=== PATIENT | male | born 1925 | race Caucasian/White ===

== ENCOUNTER 2016-06-16 07:46 | Inpatient (IN) | payer OTHER ==
[~2016-06-16] VITALS: Ht 170.2 cm; Wt 77.7 kg
[~2016-06-16 07:46] MED LIST: ACET-1256 PO; ASPEC81 PO; CARV3.122 PO; CHOL100010 PO; CMD25 PO; CMDUNK PO; FERR324T PO; FRS/40 PO; LISI40TA PO; MULT-506 PO; POTA10CA28 PO; TRAM-10 PO
[2016-06-16] MEDS ORDERED: SODIUM CHLORIDE 0.9% 1000ML 250 ML IV STA (08:11)
[2016-06-16] MEDS ORDERED: ONDANSETRON INJ 2 MG/ML 2 ML VIAL IV STA (08:11)
[2016-06-16] MEDS ORDERED: MoRPHine SULFATE 2 MG/ML CARP IV STA ×2 (08:11→09:13)
[2016-06-16] MEDS ORDERED: SODIUM CHLORIDE 0.9% 1000ML 1,000 ML IV STA (08:11)
--- NOTE | 2016-06-16 08:11 | EMERGENCY ROOM VISIT NOTE ---
History Report prepared by Genaro: Isabel Rollins Under the Supervision of: Dr. Ramez López M.D. First contact with patient: 08:01 Chief Complaint: ABDOMINAL PAIN Stated Complaint: ABD PAIN, SHARP PAIN Nursing Triage Summary: pt here with pain all over abd last night. pt states it kept him up all night. pt states had one emesis earlier last night. pt states his bowels are not right. pt states his bowels arent right, he used to go every morning, but now does not. History of Present Illness The patient is an 89 year old male who presents to the Emergency Room via son with complaints of worsening abdominal pain with onset one day ago. He rates his pain as a 9/10. The patient has had some chills, nausea, vomiting. He states that his bowel movements have been irregular and that is excrement has been hard. The patient states that he took two aspirin for the pain one day ago. The patient takes Coumadin for a pace maker that he has in place. He denies fevers, chest pain, urinary symptoms. Source of History: patient Onset: 1 day ago Position: abdomen Symptom Intensity: 9/10 Quality: other (abdominal pain) Timing: worsening Associated Symptoms: + chills, + nausea, + vomiting, No chest pain, No fevers, No urinary symptoms Note: He states that his bowel movements have been irregular and that is excrement has been hard. Review of Systems See HPI for pertinent positives & negatives. A total of 10 systems reviewed and were otherwise negative. Past Medical & Surgical Medical Problems: (1) Afib (2) Anticoagulation goal of INR 2 to 3 (3) HTN (hypertension) (4) Pacemaker (5) Right Knee DJD (6) Valvular disease Surgical Problems: (1) H/O hernia repair (2) H/O knee surgery (3) History of carpal tunnel surgery Old medical records were reviewed. Nurse's notes were reviewed and I agree with. Family History Hypertension Social History Smoking Status: Never Smoker Drug Use: none Housing Status: lives alone Occupation Status: retired Current/Historical Medications Scheduled Aspirin (Aspirin 81), 81 MG PO DAILY Carvedilol (Coreg), 12.5 MG PO BID Cholecalciferol (D 1000), 1,000 UNIT PO DAILY Furosemide (Lasix), 20 MG PO DAILY Lisinopril (Zestril), 40 MG PO DAILY Multivitamin (Multivitamin), 1 TAB PO DAILY Potassium Chloride (Micro-K Ext Rel), 10 MEQ PO DAILY Warfarin Sod (Jantoven), 2.5 MG PO UD Scheduled PRN Acetaminophen (Tylenol), 1,000 MG PO BID PRN for Pain Allergies Coded Allergies: No Known Allergies (Verified , 06/16/16) Physical Exam Vital Signs Date Time Temp Pulse Resp B/P Pulse Ox O2 Delivery O2 Flow Rate FiO2 06/16/16 11:22 60 18 146/76 95 Room Air 06/16/16 10:40 95 18 133/80 95 Room Air 06/16/16 07:55 37.1 69 16 181/92 99 Room Air Physical Exam General: Non ill appearing older male in no acute distress. HEENT: Normal cephalic atraumatic. Pupils are equal round and reactive to light. Extraocular movements are intact. Oropharynx is pink with moist mucous membranes. No swelling of the mouth lips or tongue. Neck: Supple with a midline trachea. No meningeal signs or stiffness, no JVD or bruits. No Stridor. Chest: Clear to auscultation bilaterally. No wheezes or rhonchi. No increased work of breathing. Heart: regular rate and rhythm. Abdomen: Soft, mildly diffusely tender mostly in the right mid to upper abdomen , no masses, nondistended without rebound guarding or rigidity. Extremities: No cyanosis clubbing or edema. No calf tenderness or assymetry Spine/Back. Non tender to palpation. No CVA tenderness Skin: Good turgor without rashes. Neurologic exam: Cranial nerves two through 12 are intact. Motor and sensation are intact and symmetrical throughout. Medical Decision & Procedures ER Provider Diagnostic Interpretation: CT results as stated below per my review and radiologist interpretation: CT OF THE ABDOMEN AND PELVIS WITH CONTRAST CLINICAL HISTORY: Abdominal pain. COMPARISON STUDY: None. TECHNIQUE: Following IV administration of 92 mL of Optiray-320, axial images of the abdomen and pelvis were obtained from the lung bases to the proximal femurs. Images were reviewed in the axial, sagittal, and coronal planes. IV contrast was administered without complication. CT DOSE: 476.56 mGy.cm FINDINGS: Visualized portions of the lower chest partially visualize pacer leads. There is moderate cardiomegaly. There is mild dilatation of visualized portions of the ascending aorta. Mild interlobular septal thickening is noted. The liver, spleen, adrenal glands, pancreas and kidneys are unremarkable. There is no peripancreatic infiltration. The gallbladder is slightly distended. There is moderate pericholecystic infiltration which extends into the marcial hepatis. No biliary ductal dilatation is identified. There may be small stones within the gallbladder. There is no evidence for a bowel obstruction. There is left colon diverticulosis without evidence for acute diverticulitis. No abdominal or pelvic lymphadenopathy is present. There is no hydronephrosis. No suspicious osseous lesions are present. IMPRESSION: 1. Findings suggestive of acute cholecystitis. 2. Moderate cardiomegaly and findings suggestive of mild interstitial pulmonary edema. Electronically signed by: Jhoan Rhoades M.D. 06/16/2016 9:50 AM Dictated Date/Time: 06/16/2016 9:42 AM Laboratory Results 06/16/16 08:25 Red Blood Count 4.01, Mean Corpuscular Volume 96.8, Mean Corpuscular Hemoglobin 33.4, Mean Corpuscular Hemoglobin Concent 34.5, Mean Platelet Volume 9.9, Neutrophils (%) (Auto) 86.5, Lymphocytes (%) (Auto) 7.3, Monocytes (%) (Auto) 5.6, Eosinophils (%) (Auto) 0.2, Basophils (%) (Auto) 0.1, Neutrophils # (Auto) 11.77, Lymphocytes # (Auto) 0.99, Monocytes # (Auto) 0.76, Eosinophils # (Auto) 0.03, Basophils # (Auto) 0.02 06/16/16 08:25 Test 06/16/16 08:00 06/16/16 08:25 06/16/16 08:28 06/16/16 08:30 Urine Color YELLOW Urine Appearance CLEAR (CLEAR) Urine pH 5.0 (4.5-7.5) Urine Specific [place] 1.024 (1.000-1.030) Urine Protein NEG (NEG) Urine Glucose (UA) NEG (NEG) Urine Ketones TRACE (NEG) Urine Occult Blood NEG (NEG) Urine Nitrite NEG (NEG) Urine Bilirubin NEG (NEG) Urine Urobilinogen NEG (NEG) Urine Leukocyte Esterase NEG (NEG) White Blood Count 13.61 K/uL (4.8-10.8) Red Blood Count 4.01 M/uL (4.7-6.1) Hemoglobin 13.4 g/dL (14.0-18.0) Hematocrit 38.8 % (42-52) Mean Corpuscular Volume 96.8 fL (80-100) Mean Corpuscular Hemoglobin 33.4 pg (25-34) Mean Corpuscular Hemoglobin Concent 34.5 g/dl (32-36) Platelet Count 167 K/uL (130-400) Mean Platelet Volume 9.9 fL (7.4-10.4) Neutrophils (%) (Auto) 86.5 % Lymphocytes (%) (Auto) 7.3 % Monocytes (%) (Auto) 5.6 % Eosinophils (%) (Auto) 0.2 % Basophils (%) (Auto) 0.1 % Neutrophils # (Auto) 11.77 K/uL (1.4-6.5) Lymphocytes # (Auto) 0.99 K/uL (1.2-3.4) Monocytes # (Auto) 0.76 K/uL (0.11-0.59) Eosinophils # (Auto) 0.03 K/uL (0-0.5) Basophils # (Auto) 0.02 K/uL (0-0.2) RDW Standard Deviation 49.6 fL (36.4-46.3) RDW Coefficient of Variation 14.0 % (11.5-14.5) Immature Granulocyte % (Auto) 0.3 % Immature Granulocyte # (Auto) 0.04 K/uL (0.00-0.02) Prothrombin Time 22.3 SECONDS (9.0-12.0) Prothromb Time International Ratio 2.0 (0.9-1.1) Activated Partial Thromboplast Time 34.7 SECONDS (21.0-31.0) Partial Thromboplastin Ratio 1.3 Est Creatinine Clear Calc Drug Dose 48.3 ml/min Estimated GFR () 79.9 Estimated GFR (Non- 68.9 BUN/Creatinine Ratio 18.7 (10-20) Calcium Level 9.2 mg/dl (8.5-10.1) Magnesium Level 2.2 mg/dl (1.8-2.4) Total Bilirubin 0.9 mg/dl (0.2-1) Direct Bilirubin 0.2 mg/dl (0-0.2) Aspartate Amino Transf (AST/SGOT) 24 U/L (15-37) Alanine Aminotransferase (ALT/SGPT) 48 U/L (12-78) Alkaline Phosphatase 124 U/L (45-117) Total Protein 7.5 gm/dl (6.4-8.2) Albumin 4.3 gm/dl (3.4-5.0) Lipase 156 U/L (73-393) Bedside Hemoglobin 13.9 g/dl (14.0-18.0) Bedside Hematocrit 41 % (42-52) Bedside Sodium 140 mEq/L (135-144) Bedside Potassium 4.1 mEq/L (3.3-5.0) Bedside Chloride 100 mEq/L (101-112) Bedside Total CO2 27 mEq/l (24-31) Anion Gap 19.0 mmol/L (16-25) Bedside Blood Urea Nitrogen 20 mg/dl (7-18) Bedside Creatinine 0.9 mg/dl (0.6-1.3) Bedside Glucose (other) 143 mg/dl (70-99) Bedside Ionized Calcium (Alesha) 1.15 mmol/l (1.12-1.32) Bedside Troponin I 0.020 ng/ml (0-0.045) Laboratory studies as stated above per my review. Medications Administered Medications (Trade) Dose Ordered Sig/Marek Route Start Time Stop Time Status Last Admin Dose Admin Sodium Chloride 250 ml @ 999 mls/hr Q16M STAT IV 06/16/16 08:11 06/16/16 08:26 DC 06/16/16 08:38 999 MLS/HR Sodium Chloride (Nss 1000ml) 1,000 ml @ 100 mls/hr Q10H STAT IV 06/16/16 08:11 06/16/16 13:03 DC 06/16/16 08:38 100 MLS/HR Ondansetron HCl (Zofran Inj) 4 mg NOW STAT IV 06/16/16 08:11 06/16/16 08:15 DC 06/16/16 08:36 4 MG Morphine Sulfate (MoRPHine SULFATE INJ) 2 mg NOW STAT IV 06/16/16 08:11 06/16/16 08:15 DC 06/16/16 08:37 2 MG Morphine Sulfate (MoRPHine SULFATE INJ) 2 mg NOW STAT IV 06/16/16 09:13 06/16/16 09:14 DC 06/16/16 09:16 2 MG Piperacillin Sod/ Tazobactam Sod (Zosyn Iv) 4.5 gm NOW STAT IV 06/16/16 10:38 06/16/16 10:41 DC 06/16/16 11:21 4.5 GM ECG Indication: abdominal pain Rate (beats per minute): 61 Rhythm: other (ventricular-paced rhythm) Findings: no acute ischemic change, no ectopy Comparison ECG Date: 01/11/2013 Change: no significant change ED Course 0804: Past medical records reviewed. The patient was evaluated in room B10, and a complete history and physical examination were performed. 0811: Morphine Sulfate 2 mg IV, Zofran 4 mg IV, Sodium Chloride 1000 ml @ 100 mls/hr IV, Sodium Chloride 250 ml @ 999 mls/hr IV 0855: I reevaluated the patient; he appears comfortable but states that he is having more pain. 0913: Morphine Sulfate 2 mg IV 1037: Upon reevaluation, the patient is doing well. I discussed the results and treatment plan with the patient and his son. They verbalized agreement of the treatment plan. The patient will be evaluated for further management. 1038: Zosyn 4.5 gm IV 1052: I discussed the case with Dr. Brunner (General Surgery); he advised admitting the patient to medicine and that he will see the patient. 1055: I discussed the case with Yuridia Gabriel PA-C ([facility]); she will further evaluate the patient. Medical Decision Differentials include, but are not limited to; constipation, bowel obstruction, infection, cardiac disease, UTI, gallbladder or appendix disease. This patient comes in as described above. He was placed in room B10. He is here for treatment and evaluation of abdominal pain. It is diffuse. He has had some constipation lately. IV access established and he was gently hydrated with IV normal saline. Additionally, he was given morphine 2 mg IV and Zofran 4 mg IV. Multiple blood testing was obtained. White count is elevated at 13. He has normal renal function. A CAT scan was obtained of the abdomen and pelvis. There are findings consistent with acute cholecystitis. His liver functions are not elevated. He was given Zosyn 4.5 g IV. He has no evidence of bowel obstruction. I did discuss case with Dr. Brunner who felt that the patient should be admitted the medical service and they will consult consult him. The patient is on Coumadin as an INR of 2.0. I did consult the [facility] hospitalist group who saw him in ER and will admit him for antibiotics and treatment of his acute cholecystitis Consults Time Called: 1048 Consulting Physician: Dr. Brunner (General Surgery) Returned Call: 1058 I discussed the case with Dr. Brunner (General Surgery); he advised admitting the patient to medicine and that he will see the patient. Additional Consults: Time Called: 105 Consulted Physician: Yuridia Gabriel PA-C ([facility]) Returned Call: [phone] Additional Comments: I discussed the case with Yuridia Gabriel PA-C ([facility]); she will further evaluate the patient. Impression Primary Impression: Acute cholecystitis Additional Impression: Right upper quadrant abdominal pain Scribe Attestation The scribe's documentation has been prepared under my direction and personally reviewed by me in its entirety. I confirm that the note above accurately reflects all work, treatment, procedures, and medical decision making performed by me. Departure Information Dispostion Being Evaluated By Hospitalist Referrals Niels Chambers D.OJessica (PCP) Patient Instructions My [facility] Problem Qualifiers
[2016-06-16 08:39] LABS: BASO % 0.1 %; BASO ABS # 0.02 K/uL (0-0.2); COMPLETE YES; EOS % 0.2 %; HEMATOCRIT 38.8 % (42-52); IG% 0.3 %; LYMPH % 7.3 %; LYMPH ABS # 0.99 K/uL (1.2-3.4); MEAN CELL VOLUME 96.8 fL (80-100); MEAN CORPUSCULAR HEMOGLOBIN 33.4 pg (25-34); MEAN CORPUSCULAR HGB CONC 34.5 g/dl (32-36); MEAN PLATELET VOLUME 9.9 fL (7.4-10.4); MONO % 5.6 %; NEUT % 86.5 %; PLATELET COUNT 167 K/uL (130-400); RED BLOOD COUNT 4.01 M/uL (4.7-6.1); WHITE BLOOD COUNT 13.61 K/uL (4.8-10.8)
[2016-06-16 08:42] LABS: ISTAT CREATININE 0.9 mg/dl (0.6-1.3); ISTAT HEMOGLOBIN 13.9 g/dl (14.0-18.0); ISTAT IONIZED CALCIUM 1.15 mmol/l (1.12-1.32)
[2016-06-16 08:52] LABS: URINE APPEARANCE CLEAR (CLEAR); URINE BILIRUBIN NEG (NEG); URINE COLOR YELLOW; URINE NITRITE NEG (NEG); URINE SPECIFIC GRAVITY 1.024 (1.000-1.030); UROBILINOGEN NEG (NEG)
[2016-06-16 08:53] LABS: MANUAL MICROSCOPIC REQUIRED? NO; REVIEW REQ? NO
[2016-06-16 08:55] LABS: PARTIAL THROMBOPLASTIN RATIO 1.3; PROTHROMBIN TIME (PATIENT) 22.3 SECONDS (9.0-12.0)
[2016-06-16 08:56] LABS: BUN/CREATININE RATIO 18.7 (10-20); CALCIUM 9.2 mg/dl (8.5-10.1); CREATININE 0.97 mg/dl (0.60-1.40); POTASSIUM 4.1 mmol/L (3.5-5.1)
[2016-06-16] MEDS ORDERED: OPTIRAY 320 IV PRN (09:00)
[2016-06-16] MEDS ORDERED: ASPI-435 PO (09:27)
[2016-06-16] MEDS ORDERED: CARV12.5 PO (09:27)
[2016-06-16] MEDS ORDERED: CHOL100041 PO (09:27)
[2016-06-16] MEDS ORDERED: FURO20TA PO (09:27)
[2016-06-16] MEDS ORDERED: WARF2.5T8 PO (09:27)
--- NOTE | 2016-06-16 09:52 | DIAGNOSTIC IMAGING REPORT ---
CT OF THE ABDOMEN AND PELVIS WITH CONTRAST CLINICAL HISTORY: Abdominal pain. COMPARISON STUDY: None. TECHNIQUE: Following IV administration of 92 mL of Optiray-320, axial images of the abdomen and pelvis were obtained from the lung bases to the proximal femurs. Images were reviewed in the axial, sagittal, and coronal planes. IV contrast was administered without complication. CT DOSE: 476.56 mGy.cm FINDINGS: Visualized portions of the lower chest partially visualize pacer leads. There is moderate cardiomegaly. There is mild dilatation of visualized portions of the ascending aorta. Mild interlobular septal thickening is noted. The liver, spleen, adrenal glands, pancreas and kidneys are unremarkable. There is no peripancreatic infiltration. The gallbladder is slightly distended. There is moderate pericholecystic infiltration which extends into the marcial hepatis. No biliary ductal dilatation is identified. There may be small stones within the gallbladder. There is no evidence for a bowel obstruction. There is left colon diverticulosis without evidence for acute diverticulitis. No abdominal or pelvic lymphadenopathy is present. There is no hydronephrosis. No suspicious osseous lesions are present. IMPRESSION: 1. Findings suggestive of acute cholecystitis. 2. Moderate cardiomegaly and findings suggestive of mild interstitial pulmonary edema. Electronically signed by: Jhoan Rhoades M.D. 06/16/2016 9:50 AM Dictated Date/Time: 06/16/2016 9:42 AM
[2016-06-16] MEDS ORDERED: PIPERACILLIN/TAZOBACTAM 4.5 GM/100ML D5W IV STA (10:38)
[2016-06-16] MEDS ORDERED: PIPERACILL/TAZOBAC CONSULT ACTIVE PRN (11:30)
--- NOTE | 2016-06-16 11:38 | DIAGNOSTIC IMAGING REPORT ---
CHEST ONE VIEW PORTABLE CLINICAL HISTORY: Preoperative evaluation. COMPARISON STUDY: Chest radiograph January 11, 2013. FINDINGS: A dual lead right pacemaker is noted. There is moderate cardiomegaly. No pneumothorax is present. There is no consolidation to suggest pneumonia. There is pulmonary vascular congestion without overt edema. IMPRESSION: 1. Moderate cardiomegaly. 2. Pulmonary vascular congestion without overt pulmonary edema. 3. No consolidation to suggest pneumonia. Electronically signed by: Jhoan Rhoades M.D. 06/16/2016 11:36 AM Dictated Date/Time: 06/16/2016 11:35 AM
[2016-06-16] MEDS ORDERED: SODIUM CHLORIDE 0.9% 1000ML 1,000 ML IV SCH ×2 (11:45→12:00)
[2016-06-16] MEDS ORDERED: MoRPHine SULFATE 2 MG/ML CARP IV PRN (12:00)
--- NOTE | 2016-06-16 12:06 | History and Physical ---
History & Physical Date & Time of Service: Jun 16, 2016 at 11:51 Chief Complaint: Abd Pain, Sharp Pain Primary Care Physician: Niels Chambers D.O. History of Present Illness Source: patient, family, clinic records, hospital records Patient seen and examined. 89 year old male with PMHx of Afib on Coumadin, Sick Sinus Syndrome s/p pacemaker, valvular disease, and HTN presents to the ED complaining of abdominal pain x 1 day. Patient reports last evening he developed diffuse sharp abdominal pain he rated as a 9/10. He reports it was constant and he had one episode of vomiting and one episode of loose stools. He denies fevers, chills, URI symptoms, chest pain, SOB, palpitations, dysuria, calf pain and edema. He denies new and unusual foods or fatty/fried foods. He states this has never happened before. He denies history of abdominal surgeries. In the ED VS were stable, WBC count was 13.6, INR was 2. CT a/p showed acute cholecystitis. He received IVFs, morphine and Zosyn. He is resting comfortably. Surgery was consulted and suggested medical admission for Coumadin reversal. He will be admitted for further workup and treatment. Past Medical/Surgical History Medical Problems: (1) Afib Status: Chronic (2) Anticoagulation goal of INR 2 to 3 Status: Chronic (3) HTN (hypertension) Status: Chronic (4) Pacemaker Status: Chronic (5) Right Knee DJD Status: Resolved (6) Valvular disease Status: Chronic Surgical Problems: (1) H/O hernia repair Status: Chronic (2) H/O knee surgery Status: Chronic (3) History of carpal tunnel surgery Status: Chronic Family History FH: cancer Hypertension Social History Smoking Status: Never Smoker Alcohol Use: none Drug Use: none Marital Status: Housing status: lives alone Occupational Status: retired Immunizations History of Influenza Vaccine: No Influenza Vaccine Date: Jan 18, 2010 History of Tetanus Vaccine?: Unknown History of Pneumococcal: No History of Hepatitis B Vaccine: Unknown Allergies Coded Allergies: No Known Allergies (Verified , 06/16/16) Home Medications Scheduled Aspirin (Aspirin 81), 81 MG PO DAILY Carvedilol (Coreg), 12.5 MG PO BID Cholecalciferol (D 1000), 1,000 UNIT PO DAILY Furosemide (Lasix), 20 MG PO DAILY Lisinopril (Zestril), 40 MG PO DAILY Multivitamin (Multivitamin), 1 TAB PO DAILY Potassium Chloride (Micro-K Ext Rel), 10 MEQ PO DAILY Warfarin Sod (Jantoven), 2.5 MG PO UD Scheduled PRN Acetaminophen (Tylenol), 1,000 MG PO BID PRN for Pain Review of Systems See above for pertinent positives & negatives. A total of 10 systems reviewed and were otherwise negative. Physical Exam Vital Signs Date Time Temp Pulse Resp B/P Pulse Ox O2 Delivery O2 Flow Rate FiO2 06/16/16 11:22 60 18 146/76 95 Room Air 06/16/16 10:40 95 18 133/80 95 Room Air 06/16/16 07:55 37.1 69 16 181/92 99 Room Air General Appearance: + pertinent finding (Pleasant WD/WN 89 year old male lying in bed in NAD with family at bedside ) Head: normocephalic, atraumatic Eyes: PERRL, EOMI, sclerae normal ENT: normal ENT inspection, pharynx normal Neck: supple, no JVD Respiratory/Chest: chest non-tender, lungs clear, normal breath sounds, no respiratory distress, no accessory muscle use Cardiovascular: regular rate, rhythm, no edema, no gallop, no JVD, no murmur, normal peripheral pulses Abdomen/GI: normal bowel sounds, soft, + tenderness (diffuse worse RUQ, no guarding or rigidity ), + pertinent finding (+calixto's sign ) Back: normal inspection, no muscle spasm Extremities/Musculoskelatal: no calf tenderness, normal capillary refill, no pedal edema Neurologic/Psych: no motor/sensory deficits, alert, oriented x 3 Skin: normal color, warm/dry, no rash Lymphatic: no adenopathy Diagnostics Laboratory Results Results Past 24 Hours Test 06/16/16 08:00 06/16/16 08:25 06/16/16 08:28 06/16/16 08:30 Range/Units Urine Color YELLOW Urine Appearance CLEAR CLEAR Urine pH 5.0 4.5-7.5 Urine Specific Gem 1.024 1.000-1.030 Urine Protein NEG NEG Urine Glucose (UA) NEG NEG Urine Ketones TRACE NEG Urine Occult Blood NEG NEG Urine Nitrite NEG NEG Urine Bilirubin NEG NEG Urine Urobilinogen NEG NEG Urine Leukocyte Esterase NEG NEG White Blood Count 13.61 4.8-10.8 K/uL Red Blood Count 4.01 4.7-6.1 M/uL Hemoglobin 13.4 14.0-18.0 g/dL Hematocrit 38.8 42-52 % Mean Corpuscular Volume 96.8 80-100 fL Mean Corpuscular Hemoglobin 33.4 25-34 pg Mean Corpuscular Hemoglobin Concent 34.5 32-36 g/dl Platelet Count 167 130-400 K/uL Mean Platelet Volume 9.9 7.4-10.4 fL Neutrophils (%) (Auto) 86.5 % Lymphocytes (%) (Auto) 7.3 % Monocytes (%) (Auto) 5.6 % Eosinophils (%) (Auto) 0.2 % Basophils (%) (Auto) 0.1 % Neutrophils # (Auto) 11.77 1.4-6.5 K/uL Lymphocytes # (Auto) 0.99 1.2-3.4 K/uL Monocytes # (Auto) 0.76 0.11-0.59 K/uL Eosinophils # (Auto) 0.03 0-0.5 K/uL Basophils # (Auto) 0.02 0-0.2 K/uL RDW Standard Deviation 49.6 36.4-46.3 fL RDW Coefficient of Variation 14.0 11.5-14.5 % Immature Granulocyte % (Auto) 0.3 % Immature Granulocyte # (Auto) 0.04 0.00-0.02 K/uL Prothrombin Time 22.3 9.0-12.0 SECONDS Prothromb Time International Ratio 2.0 0.9-1.1 Activated Partial Thromboplast Time 34.7 21.0-31.0 SECONDS Partial Thromboplastin Ratio 1.3 Sodium Level 139 136-145 mmol/L Potassium Level 4.1 3.5-5.1 mmol/L Chloride Level 102 98-107 mmol/L Carbon Dioxide Level 28 21-32 mmol/L Anion Gap 9.0 19.0 16-25 mmol/L Blood Urea Nitrogen 18 7-18 mg/dl Creatinine 0.97 0.60-1.40 mg/dl Est Creatinine Clear Calc Drug Dose 48.3 ml/min Estimated GFR () 79.9 Estimated GFR (Non- 68.9 BUN/Creatinine Ratio 18.7 10-20 Random Glucose 141 70-99 mg/dl Calcium Level 9.2 8.5-10.1 mg/dl Magnesium Level 2.2 1.8-2.4 mg/dl Total Bilirubin 0.9 0.2-1 mg/dl Direct Bilirubin 0.2 0-0.2 mg/dl Aspartate Amino Transf (AST/SGOT) 24 15-37 U/L Alanine Aminotransferase (ALT/SGPT) 48 12-78 U/L Alkaline Phosphatase 124 45-117 U/L Total Protein 7.5 6.4-8.2 gm/dl Albumin 4.3 3.4-5.0 gm/dl Lipase 156 73-393 U/L Bedside Hemoglobin 13.9 14.0-18.0 g/dl Bedside Hematocrit 41 42-52 % Bedside Sodium 140 135-144 mEq/L Bedside Potassium 4.1 3.3-5.0 mEq/L Bedside Chloride 100 101-112 mEq/L Bedside Total CO2 27 24-31 mEq/l Bedside Blood Urea Nitrogen 20 7-18 mg/dl Bedside Creatinine 0.9 0.6-1.3 mg/dl Bedside Glucose (other) 143 70-99 mg/dl Bedside Ionized Calcium (Alesha) 1.15 1.12-1.32 mmol/l Bedside Troponin I 0.020 0-0.045 ng/ml Microbiology Results 06/16/16 Urine Culture, Received Pending Diagnostic Radiology CXR Per radiologist read: IMPRESSION: 1. Moderate cardiomegaly. 2. Pulmonary vascular congestion without overt pulmonary edema. 3. No consolidation to suggest pneumonia. CT A/P Per radiologist read: IMPRESSION: 1. Findings suggestive of acute cholecystitis. 2. Moderate cardiomegaly and findings suggestive of mild interstitial pulmonary edema. EKG Ventricular paced 61 BPM, Qtc 491 Impression Assessment and Plan 89 year old male presents to the ED with abdominal pain, found to have acute cholecystitis. ACUTE CHOLECYSTITIS -Admit to med/surg -WBC count 13K, lfts stable, afebrile -Dr. Brunner (general surgery) aware input appreciated -empirically treat with Zosyn -Gentle IVF hydration -Morphine prn pain -keep npo until seen by surgery -reverse Coumadin with Vitamin K po -Preop workup - EKG paced rhythm, check CXR, Echo, interrogate pacemaker -continue BB perioperatively without interruption -hold Coumadin, aspirin -CBC, CMP, Mg in AM ATRIAL FIBRILLATION -ventricular paced -hold Coumadin for upcoming surgery -continue BB -follow INR H/O SICK SINUS SYNDROME -s/p pacemaker -per family pacemaker nearing end of battery life -interrogation ordered VALVULAR DISEASE -h/o mitral regurgitation and aortic insufficiency -update Echo -hold lasix for now -monitor volume status closely HTN -stable -continue BB -hold lisinopril for now DVT PROPHYLAXIS: SCDs RE: surgery CODE STATUS: FULL CODE per my discussion with the patient and his family DISPO:In my clinical judgment this beneficiary meets acute admission criteria, established by [facility], that includes being hospitalized through two midnights. Patient seen in collaboration with Dr. Roche Attending Addendum Pt was seen and examined. Agreed with Yuridia AGLLEGOS physical exam, assessment and plan. 89 year old male with PMHx of Afib on Coumadin, Sick Sinus Syndrome s/p pacemaker, valvular disease, and HTN presents to the ED complaining of abdominal pain. Pt said that the pain started last night associated with nausea , vomiting and diarrhea. he described it as sharp, constant and diffuse, grade 9/10. Denies any fever, palpitation, dizziness and SOB. General- No acute distress Head- atraumatic Eyes- PERRL, EOMI ENT- oropharynx clear Neck- supple, no JVD Lungs- clear to auscultation, no wheezing Heart- regular rhythm; no murmur Abdomen- normal bowel sounds, RUQ abdominal tenderness A/P RUQ abdominal tenderness CT abdomen showed findings suggestive of acute cholecystitis Dr. Brunner (general surgery) on board for possible surgery in am Continue Morphine prn pain INR 2 will give vit K ( INR needs to be btw 1-1.5 ), hold coumadin Need cardiac clearance as per surgery check echo and pacemaker interrogation Lab, imaging, EKG reviewed Please refer to Yuridia GALLEGOS's documentation for other problems Felipe Roche MD VTE Prophylaxis VTE Risk Assessment Done? Y/N: Yes Risk Level: Moderate
--- NOTE | 2016-06-16 12:36 | Pre-Operative Consultation ---
History General Date of Service: Jun 16, 2016. Stated Complaint: abdominal pain HPI HPI: The patient is a 89 year old male being seen for acute cholecystitis. He initialling complained of worsening abdominal pain since last night, . The patient has had some chills, nausea, vomiting. He denies fever or urinary symptoms. The patient takes Coumadin a.fib and has a pacemaker. Historian: patient Procedure Urgency: Acute Risk Assessment Daily beta teresa use?: Yes Beta Teresa Details Indication Beta Teresa use: hypertension Problem List Medical Problems: (1) Acute cholecystitis Status: Acute (2) Right upper quadrant abdominal pain Status: Acute Medical & Surgical History Past Medical History: atrial fibrillation, heart disease, hypertension, osteoarthritis Past Surgical History: hernia repair, total knee replacement Family History Family History: cancer, hypertension Social History Hx Tobacco Use In Past Year?: No Smoking Status: Never Smoker Drug Use: none Marital status: Housing status: lives alone Occupation status: retired Immunizations Have You Had Influenza Vaccine: No Date Of Influenza Vaccine: Jan 18, 2010 Have You Had Tetanus Vaccine: Unknown History of Pneumococcal: No History Hepatitis B Vaccine: Unknown Allergies Allergies: Coded Allergies: No Known Allergies (Verified , 06/16/16) Medications Current Inpatient Medications Current Inpatient Medications Medications (Trade) Dose Ordered Sig/Marek Route Start Time Stop Time Status Last Admin Dose Admin Sodium Chloride (Nss 1000ml) 1,000 ml @ 100 mls/hr Q10H STAT IV 06/16/16 08:11 06/16/16 18:10 06/16/16 08:38 100 MLS/HR Ioversol 111 ml 111 ml UD PRN IV 06/16/16 09:00 06/20/16 08:59 Piperacillin Sod/ Tazobactam Sod/ Dextrose (Zosyn Iv/D5 100ml) 115 ml @ 200 mls/hr Q6 IV 06/16/16 12:00 06/26/16 11:59 UNV Piperacillin Sod/ Tazobactam Sod (Consult) 1 ea UD PRN N/A 06/16/16 11:30 07/16/16 11:29 Acetaminophen (Tylenol Tab) 650 mg Q4H PRN PO 06/16/16 11:45 07/16/16 11:44 UNV Ondansetron HCl (Zofran Inj) 4 mg Q6H PRN IV 06/16/16 11:45 07/16/16 11:44 UNV Phytonadione (Mephyton Tab) 5 mg NOW STAT PO 06/16/16 11:35 06/16/16 11:36 UNV Carvedilol 12.5 mg 12.5 mg BID PO 06/16/16 21:00 07/16/16 20:59 UNV Sodium Chloride (Nss 1000ml) 1,000 ml @ 50 mls/hr Q20H IV 06/16/16 12:00 07/16/16 11:59 UNV Morphine Sulfate (MoRPHine SULFATE INJ) 2 mg Q4H PRN IV 06/16/16 12:00 06/30/16 11:59 UNV Review of Systems Review of Systems Constitutional: chills, denies diaphoresis, denies fever, denies weakness Eyes: reports: no symptoms ENT: reports: no symptoms reported Cardiovascular: denies: chest pressure, chest tightness, palpitations, syncope Respiratory: denies: cough, short of breath, stridor Gastrointestinal: abdominal pain, denies constipation, denies diarrhea, nausea , vomiting Genitourinary - Male: reports: no symptoms Musculoskeletal: back pain, denies joint pain, denies joint swelling Integumentary: denies change in color, denies change in hair/nails, denies dryness, denies lumps, denies rash Neurologic: denies: focal weakness, general weakness, pre-existing deficit Psychiatric: reports: no symptoms Endocrine: no symptoms Hematologic / Lymphatic: easy bleeding, easy bruising, no symptoms Allergic / Immunologic: denies: frequent infections, pet sensitivities Physical Exam Physical Exam General Appearance: + WD/WN, No distress Ears, Nose, Throat: + normal ENT inspection Neck: No abnormal inspection, No lymphadenophy, No stiffness, No tenderness, No tracheal deviation Respiratory: No decreased breath sounds, No rhonchi, No stridor, No wheezing Cardiovascular: + other (pacer), No bradycardia, No diastolic murmur, No gallop /S3, No gallop/S4, No systolic murmur, No tachycardia Abdomen: + distension, + tenderness, No abnormal bowel sounds, No guarding, No organomegaly, No rebound Extremities: No calf tenderness, No deformity, No inflammation, No swelling Neurologic/Psychiatric: No disorientation, No motor deficit/weakness, No sensory deficit Skin Characteristics: No abnormal color, No cyanosis, No diaphoresis, No jaundice, No pallor, No rash Lymphatic: No abnormal adenopathy Diagnostics Labs Labs Results Past 24 Hours Test 06/16/16 08:00 06/16/16 08:25 06/16/16 08:28 06/16/16 08:30 Range/Units Urine Color YELLOW Urine Appearance CLEAR CLEAR Urine pH 5.0 4.5-7.5 Urine Specific [place] 1.024 1.000-1.030 Urine Protein NEG NEG Urine Glucose (UA) NEG NEG Urine Ketones TRACE NEG Urine Occult Blood NEG NEG Urine Nitrite NEG NEG Urine Bilirubin NEG NEG Urine Urobilinogen NEG NEG Urine Leukocyte Esterase NEG NEG White Blood Count 13.61 4.8-10.8 K/uL Red Blood Count 4.01 4.7-6.1 M/uL Hemoglobin 13.4 14.0-18.0 g/dL Hematocrit 38.8 42-52 % Mean Corpuscular Volume 96.8 80-100 fL Mean Corpuscular Hemoglobin 33.4 25-34 pg Mean Corpuscular Hemoglobin Concent 34.5 32-36 g/dl Platelet Count 167 130-400 K/uL Mean Platelet Volume 9.9 7.4-10.4 fL Neutrophils (%) (Auto) 86.5 % Lymphocytes (%) (Auto) 7.3 % Monocytes (%) (Auto) 5.6 % Eosinophils (%) (Auto) 0.2 % Basophils (%) (Auto) 0.1 % Neutrophils # (Auto) 11.77 1.4-6.5 K/uL Lymphocytes # (Auto) 0.99 1.2-3.4 K/uL Monocytes # (Auto) 0.76 0.11-0.59 K/uL Eosinophils # (Auto) 0.03 0-0.5 K/uL Basophils # (Auto) 0.02 0-0.2 K/uL RDW Standard Deviation 49.6 36.4-46.3 fL RDW Coefficient of Variation 14.0 11.5-14.5 % Immature Granulocyte % (Auto) 0.3 % Immature Granulocyte # (Auto) 0.04 0.00-0.02 K/uL Prothrombin Time 22.3 9.0-12.0 SECONDS Prothromb Time International Ratio 2.0 0.9-1.1 Activated Partial Thromboplast Time 34.7 21.0-31.0 SECONDS Partial Thromboplastin Ratio 1.3 Sodium Level 139 136-145 mmol/L Potassium Level 4.1 3.5-5.1 mmol/L Chloride Level 102 98-107 mmol/L Carbon Dioxide Level 28 21-32 mmol/L Anion Gap 9.0 19.0 16-25 mmol/L Blood Urea Nitrogen 18 7-18 mg/dl Creatinine 0.97 0.60-1.40 mg/dl Est Creatinine Clear Calc Drug Dose 48.3 ml/min Estimated GFR () 79.9 Estimated GFR (Non- 68.9 BUN/Creatinine Ratio 18.7 10-20 Random Glucose 141 70-99 mg/dl Calcium Level 9.2 8.5-10.1 mg/dl Magnesium Level 2.2 1.8-2.4 mg/dl Total Bilirubin 0.9 0.2-1 mg/dl Direct Bilirubin 0.2 0-0.2 mg/dl Aspartate Amino Transf (AST/SGOT) 24 15-37 U/L Alanine Aminotransferase (ALT/SGPT) 48 12-78 U/L Alkaline Phosphatase 124 45-117 U/L Total Protein 7.5 6.4-8.2 gm/dl Albumin 4.3 3.4-5.0 gm/dl Lipase 156 73-393 U/L Bedside Hemoglobin 13.9 14.0-18.0 g/dl Bedside Hematocrit 41 42-52 % Bedside Sodium 140 135-144 mEq/L Bedside Potassium 4.1 3.3-5.0 mEq/L Bedside Chloride 100 101-112 mEq/L Bedside Total CO2 27 24-31 mEq/l Bedside Blood Urea Nitrogen 20 7-18 mg/dl Bedside Creatinine 0.9 0.6-1.3 mg/dl Bedside Glucose (other) 143 70-99 mg/dl Bedside Ionized Calcium (Alesha) 1.15 1.12-1.32 mmol/l Bedside Troponin I 0.020 0-0.045 ng/ml Microbiology Results 06/16/16 Urine Culture, Received Pending Diagnostic Radiology Diagnostic Radiology CT OF THE ABDOMEN AND PELVIS WITH CONTRAST CLINICAL HISTORY: Abdominal pain. COMPARISON STUDY: None. TECHNIQUE: Following IV administration of 92 mL of Optiray-320, axial images of the abdomen and pelvis were obtained from the lung bases to the proximal femurs. Images were reviewed in the axial, sagittal, and coronal planes. IV contrast was administered without complication. CT DOSE: 476.56 mGy.cm FINDINGS: Visualized portions of the lower chest partially visualize pacer leads. There is moderate cardiomegaly. There is mild dilatation of visualized portions of the ascending aorta. Mild interlobular septal thickening is noted. The liver, spleen, adrenal glands, pancreas and kidneys are unremarkable. There is no peripancreatic infiltration. The gallbladder is slightly distended. There is moderate pericholecystic infiltration which extends into the marcial hepatis. No biliary ductal dilatation is identified. There may be small stones within the gallbladder. There is no evidence for a bowel obstruction. There is left colon diverticulosis without evidence for acute diverticulitis. No abdominal or pelvic lymphadenopathy is present. There is no hydronephrosis. No suspicious osseous lesions are present. IMPRESSION: 1. Findings suggestive of acute cholecystitis. 2. Moderate cardiomegaly and findings suggestive of mild interstitial pulmonary edema. Impression Assessment and Plan Assessment and Plan Acute cholecystitis -HIDA to see if stone obstructed -IV zosyn -medicine to correct coags between 1-1.5 -cardiac clearance -if patient good candidate or stone is obstructing GB then will need lap gage likely Friday
[2016-06-16 12:57] VITALS: BP 143/78; PULSE 68; TEMP 37.7; Ht 170.2 cm; Wt 77.7 kg
[2016-06-16] MEDS ORDERED: PHYTONADIONE 5 MG TAB PO STA (13:03)
[2016-06-16 15:34] VITALS: BP 129/72; PULSE 73; TEMP 38; O2SAT 93
--- NOTE | 2016-06-16 15:39 | DIAGNOSTIC IMAGING REPORT ---
NUCLEAR MEDICINE HEPATOBILIARY SCAN CLINICAL HISTORY: Abdominal pain. COMPARISON: CT of the abdomen and pelvis performed earlier today. TECHNIQUE: 5.5 mCi of technetium 99m Choletec IV was injected at 1:45 PM on June 16, 2016. Immediately following injection, imaging of the abdomen was carried out for 60 minutes in the anterior projection. Gallbladder activity was not noted at 60 minutes and therefore 2 mg of morphine was administered IV and delayed phase imaging was performed for an additional 30 minutes. FINDINGS: Hepatic uptake of radiotracer is prompt and homogeneous. Activity is first noted within the common bile duct and the small bowel at 10 minutes. No gallbladder activity was identified at 60 minutes. Morphine was administered. No gallbladder activity was noted 30 minutes following morphine administration. The findings suggest acute cholecystitis. IMPRESSION: Scintigraphic findings suggestive of acute cholecystitis. Electronically signed by: Jhoan Rhoades M.D. 06/16/2016 3:38 PM Dictated Date/Time: 06/16/2016 3:36 PM
[2016-06-16] MEDS: PIPERACILL/TAZOBAC IV 3.375 GM in DEXTROSE 5% 100ML 100 ML IV SCH ×2 (16:20→21:40)
[2016-06-16] MEDS: CARVEDILOL 12.5 MG TAB PO SCH (21:00)
[2016-06-16 21:37] VITALS: BP 126/68; PULSE 59; TEMP 38.7
[2016-06-16] MEDS: ACETAMINOPHEN 325 MG TAB PO PRN (21:40)
[2016-06-16 23:00] VITALS: BP 122/71; PULSE 61; TEMP 37.8; O2SAT 93
[2016-06-17] VITALS (8 sets, daily range): BP systolic 99–120; BP diastolic 58–72; PULSE 60–68; TEMP 37.4–38.3; O2SAT 92–93
[2016-06-17] MEDS: PIPERACILL/TAZOBAC IV 3.375 GM in DEXTROSE 5% 100ML 100 ML IV SCH ×3 (03:53→17:53)
[2016-06-17 06:49] LABS: HEMATOCRIT 37.2 % (42-52); MEAN CELL VOLUME 97.9 fL (80-100); MEAN CORPUSCULAR HEMOGLOBIN 33.2 pg (25-34); MEAN CORPUSCULAR HGB CONC 33.9 g/dl (32-36); MEAN PLATELET VOLUME 9.8 fL (7.4-10.4); PLATELET COUNT 134 K/uL (130-400); WHITE BLOOD COUNT 20.03 K/uL (4.8-10.8)
[2016-06-17 06:52] LABS: INR 1.9 (0.9-1.1); PROTHROMBIN TIME (PATIENT) 21.2 SECONDS (9.0-12.0)
[2016-06-17 07:19] LABS: BUN/CREATININE RATIO 13.7 (10-20); CALCIUM 8.6 mg/dl (8.5-10.1); CREATININE 1.1 mg/dl (0.60-1.40); POTASSIUM 3.8 mmol/L (3.5-5.1)
[2016-06-17] MEDS ORDERED: PERFLUTREN LIPID MICROSPHERE (DEFINITY) IV ONE (08:10)
[2016-06-17] MEDS: ACETAMINOPHEN 325 MG TAB PO PRN ×2 (08:58→15:34)
[2016-06-17] MEDS: CARVEDILOL 12.5 MG TAB PO SCH ×2 (08:58→20:00)
--- NOTE | 2016-06-17 09:40 | Surgery Progress Note ---
Surgery Progress Note Date of Service Jun 17, 2016. Subjective Post OP Day: HD 2 + complaints (RUQ pain), + flatus, No nausea, No vomiting Objective Vital Signs: Date Time Temp Pulse Resp B/P Pulse Ox O2 Delivery O2 Flow Rate FiO2 06/17/16 09:23 37.7 06/17/16 08:57 68 06/17/16 08:31 93 Room Air 06/17/16 08:06 38.3 60 13 120/70 93 Room Air 06/17/16 07:30 Room Air 06/17/16 03:57 37.4 06/16/16 23:50 Room Air 06/16/16 23:00 37.8 61 18 122/71 93 Room Air 06/16/16 21:37 38.7 59 126/68 06/16/16 16:40 Room Air 06/16/16 15:34 38.0 73 18 129/72 93 Room Air 06/16/16 12:57 37.7 68 16 143/78 06/16/16 12:31 63 18 137/86 93 Room Air 06/16/16 11:22 60 18 146/76 95 Room Air 06/16/16 10:40 95 18 133/80 95 Room Air General Appearance: WD/WN, no apparent distress Head: normocephalic, atraumatic Neck: supple, trachea midline Respiratory/Chest: lungs clear Cardiovascular: regular rate, rhythm Abdomen: normal bowel sounds, soft, + distended, + tenderness Extremities: non-tender, no pedal edema Laboratory Results: Results Past 24 Hours Test 06/17/16 06:34 Range/Units White Blood Count 20.03 4.8-10.8 K/uL Red Blood Count 3.80 4.7-6.1 M/uL Hemoglobin 12.6 14.0-18.0 g/dL Hematocrit 37.2 42-52 % Mean Corpuscular Volume 97.9 80-100 fL Mean Corpuscular Hemoglobin 33.2 25-34 pg Mean Corpuscular Hemoglobin Concent 33.9 32-36 g/dl RDW Standard Deviation 52.2 36.4-46.3 fL RDW Coefficient of Variation 14.6 11.5-14.5 % Platelet Count 134 130-400 K/uL Mean Platelet Volume 9.8 7.4-10.4 fL Prothrombin Time 21.2 9.0-12.0 SECONDS Prothromb Time International Ratio 1.9 0.9-1.1 Sodium Level 140 136-145 mmol/L Potassium Level 3.8 3.5-5.1 mmol/L Chloride Level 105 98-107 mmol/L Carbon Dioxide Level 26 21-32 mmol/L Anion Gap 9.0 3-11 mmol/L Blood Urea Nitrogen 15 7-18 mg/dl Creatinine 1.10 0.60-1.40 mg/dl Est Creatinine Clear Calc Drug Dose 42.6 ml/min Estimated GFR () 68.6 Estimated GFR (Non- 59.2 BUN/Creatinine Ratio 13.7 10-20 Random Glucose 127 70-99 mg/dl Calcium Level 8.6 8.5-10.1 mg/dl Magnesium Level 2.0 1.8-2.4 mg/dl Total Bilirubin 1.3 0.2-1 mg/dl Aspartate Amino Transf (AST/SGOT) 21 15-37 U/L Alanine Aminotransferase (ALT/SGPT) 35 12-78 U/L Alkaline Phosphatase 86 45-117 U/L Total Protein 6.7 6.4-8.2 gm/dl Albumin 3.3 3.4-5.0 gm/dl Globulin 3.4 2.5-4.0 gm/dl Albumin/Globulin Ratio 1.0 0.9-2 Assessment & Plan acute cholecystitis -IV abx -clears -NPO past MN -if medically cleared lap gage tomorrow
--- NOTE | 2016-06-17 10:27 | ECHOCARDIOGRAM REPORT ---
*NOTICE TO RECEIVING [employer] AGENCY This information is strictly Confidential and protected under [place] law. [place] law prohibits you from making any further disclosure of this information unless further disclosure is expressly permitted by the written consent of the person to whom it pertains or is authorized by law. A general authorization for the release of medical or other information is not sufficient for this purpose. Hospital accepts no responsibility if the information is made available to any other person, INCLUDING THE PATIENT. 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 * There is no comparison study available. * -- Conclusions -- * Left ventricular systolic function is normal. * Ejection Fraction = 55-60%. * There is mild concentric left ventricular hypertrophy. * Apical wall motion abnormality may reflect pacemaker activation. * The left atrium is severely dilated. * Mild to moderate aortic regurgitation. * There is mild mitral regurgitation. * There is moderate to severe tricuspid regurgitation. * The estimated systolic PAP is 50mmHg. 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 * IVC was not visualized. Procedure Details * A complete two-dimensional transthoracic echocardiogram was performed (2D, M-mode, Doppler and color flow Doppler). * A contrast injection of Definity was performed to improve assessment of LV function. * Contrast was injected into an intravenous site in the left arm. * One vial of Definity ultrasound contrast was diluted in normal saline to a total volume of 10 ml. A total of '2' ml of solution was administered during imaging. * Lot # [id number] of Definity utilized for procedure. * Expiration date 07/09. * The attending nurse who injected the contrast agent was RAMIRO GREENE RN. Left Ventricle * The left ventricle is normal in size. * There is no thrombus. * There is mild concentric left ventricular hypertrophy. * Ejection Fraction = 55-60%. * Left ventricular systolic function is normal. * Apical wall motion abnormality may reflect pacemaker activation. Right Ventricle * The right ventricular cavity size is enlarged (basal dimension >4.2 cm in right ventricular apical 4-chamber view). * There is a pacemaker lead in the right ventricle. * The right ventricular systolic function is qualitatively normal. Atria * The left atrium is severely dilated. * The right atrium is moderately dilated. * There is no evidence of atrial septal defect, but resolution does not allow assessment for a patent foramen ovale. Mitral Valve * The mitral valve is normal. * There is no mitral valve stenosis. * There is mild mitral regurgitation. Tricuspid Valve * The tricuspid valve is normal. * There is no tricuspid stenosis. * There is moderate to severe tricuspid regurgitation. * The estimated systolic PAP is 50mmHg. Aortic Valve * The aortic valve is trileaflet. * Aortic valve sclerosis mild, without significant aortic valvular stenosis. * Aortic stenosis is absent. * Mild to moderate aortic regurgitation. Pulmonic Valve * The pulmonary valve is inadequately visualized, but the Doppler data is adequate for interpretation. * There is no pulmonic valvular stenosis. * Mild pulmonic valvular regurgitation. Great Vessels * Mildly dilated ascending aorta. Pericardium/Pleural * There is no pericardial effusion. 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 IVC was not visualized. MMode 2D Measurements and Calculations IVSd 1.4 cm IVSs 1.8 cm LVIDd 4.8 cm LVIDs 3.0 cm LVPWd 1.5 cm LVPWs 2.6 cm IVS/LVPW 0.95 FS 38.5 % EDV(Teich) 107.4 ml ESV(Teich) 33.6 ml EF(Teich) 68.7 % EDV(cubed) 110.4 ml ESV(cubed) 25.7 ml EF(cubed) 76.7 % % IVS thick 27.7 % % LVPW thick 75.7 % LV mass(C)d 287.5 grams LV mass(C)dI 151.9 grams/m\S\2 LV mass(C)s 310.9 grams LV mass(C)sI 164.3 grams/m\S\2 SV(Teich) 73.7 ml SI(Teich) 39.0 ml/m\S\2 SV(cubed) 84.7 ml SI(cubed) 44.8 ml/m\S\2 ACS 1.9 cm LA dimension 5.1 cm asc Aorta Diam 4.2 cm LVOT diam 2.0 cm LVOT area 3.2 cm\S\2 LVAd ap4 26.4 cm\S\2 LVLd ap4 6.7 cm EDV(MOD-sp4) 84.4 ml EDV(sp4-el) 89.2 ml LVAs ap4 14.0 cm\S\2 LVLs ap4 5.6 cm ESV(MOD-sp4) 27.1 ml ESV(sp4-el) 29.5 ml EF(MOD-sp4) 67.9 % EF(sp4-el) 66.9 % LVAd ap2 26.7 cm\S\2 LVLd ap2 6.8 cm EDV(MOD-sp2) 82.3 ml EDV(sp2-el) 88.9 ml LVAs ap2 12.0 cm\S\2 LVLs ap2 4.9 cm ESV(MOD-sp2) 25.4 ml ESV(sp2-el) 25.2 ml EF(MOD-sp2) 69.1 % EF(sp2-el) 71.7 % LVLd %diff 2.5 % EDV(MOD-bp) 85.9 ml LVLs %diff -15.15 % ESV(MOD-bp) 27.9 ml EF(MOD-bp) 67.5 % SV(MOD-sp4) 57.3 ml SI(MOD-sp4) 30.3 ml/m\S\2 SV(MOD-sp2) 56.9 ml SI(MOD-sp2) 30.1 ml/m\S\2 SV(MOD-bp) 58.0 ml SI(MOD-bp) 30.6 ml/m\S\2 SV(sp4-el) 59.7 ml SI(sp4-el) 31.6 ml/m\S\2 SV(sp2-el) 63.7 ml SI(sp2-el) 33.7 ml/m\S\2 Doppler Measurements and Calculations MV E max shyann 98.1 cm/sec MV dec time 0.26 sec Ao V2 max 141.5 cm/sec Ao max PG 8.0 mmHg Ao max PG (full) 3.8 mmHg RIC(V,A) 2.3 cm\S\2 RIC(V,D) 2.3 cm\S\2 AI max shyann 370.5 cm/sec AI max PG 54.9 mmHg AI dec slope 153.4 cm/sec\S\2 AI P1/2t 707.2 msec LV V1 max PG 4.2 mmHg LV V1 max 103.0 cm/sec MR max shyann 426.7 cm/sec MR max PG 72.8 mmHg PA V2 max 98.1 cm/sec PA max PG 3.9 mmHg TR max shyann 341.6 cm/sec
--- NOTE | 2016-06-17 14:25 | Progress Note ---
Internal Med Progress Note Date of Service: Jun 17, 2016. Provider Documentation: SUBJECTIVE: The patient was seen and examined Pain in upper abdomen is better but not yet gone No nausea and or vomiting No fecver ,chills OBJECTIVE: Vital Signs-as noted below Exam: General-no distress at rest Eyes-normal ENT-normal Neck-supple Lungs-Clear to ausucltate bilaterally Heart-Regular ,no murmur Abdomen-Distended,tender upper quadrants ,more non the right than the left Extremities-No edema Neuro-AAOx3 Lab data as noted below. ASSESSMENT & PLAN: ACUTE CHOLECYSTITIS -CT of the Abdomen and HIDA scan suggestive of Acute Cholecystitis -Dr. Brunner (general surgery) aware input appreciated -IV Zosyn ,Gentle IVF ,pain medication -likely surgery in AM -No contraindication for surgery .caries usual risk -give AM dose of BB -Clinically a little better but WCC increased ATRIAL FIBRILLATION /H/O SICK SINUS SYNDROME -controlled paced rhythm -PPM checked -hold Coumadin for upcoming surgery -continue BB VALVULAR DISEASE -h/o mitral regurgitation and aortic insufficiency -update Echo ::Left ventricular systolic function is normal. * Ejection Fraction = 55-60%. * There is mild concentric left ventricular hypertrophy. * Apical wall motion abnormality may reflect pacemaker activation. * The left atrium is severely dilated. * Mild to moderate aortic regurgitation. * There is mild mitral regurgitation. * There is moderate to severe tricuspid regurgitation. * The estimated systolic PAP is 50mmHg. 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 * IVC was not visualized. -hold lasix for now -monitor volume status closely HTN -stable -continue BB -hold lisinopril for now DVT PROPHYLAXIS: SCDs RE: surgery CODE STATUS: FULL CODE per my discussion with the patient and his family DISPO: Awaited Vital Signs: Date Time Temp Pulse Resp B/P Pulse Ox O2 Delivery O2 Flow Rate FiO2 06/17/16 09:23 37.7 06/17/16 08:57 68 06/17/16 08:31 93 Room Air 06/17/16 08:06 38.3 60 13 120/70 93 Room Air 06/17/16 07:30 Room Air 06/17/16 03:57 37.4 06/16/16 23:50 Room Air 06/16/16 23:00 37.8 61 18 122/71 93 Room Air 06/16/16 21:37 38.7 59 126/68 06/16/16 16:40 Room Air 06/16/16 15:34 38.0 73 18 129/72 93 Room Air Lab Results: Results Past 24 Hours Test 06/17/16 06:34 Range/Units White Blood Count 20.03 4.8-10.8 K/uL Red Blood Count 3.80 4.7-6.1 M/uL Hemoglobin 12.6 14.0-18.0 g/dL Hematocrit 37.2 42-52 % Mean Corpuscular Volume 97.9 80-100 fL Mean Corpuscular Hemoglobin 33.2 25-34 pg Mean Corpuscular Hemoglobin Concent 33.9 32-36 g/dl RDW Standard Deviation 52.2 36.4-46.3 fL RDW Coefficient of Variation 14.6 11.5-14.5 % Platelet Count 134 130-400 K/uL Mean Platelet Volume 9.8 7.4-10.4 fL Prothrombin Time 21.2 9.0-12.0 SECONDS Prothromb Time International Ratio 1.9 0.9-1.1 Sodium Level 140 136-145 mmol/L Potassium Level 3.8 3.5-5.1 mmol/L Chloride Level 105 98-107 mmol/L Carbon Dioxide Level 26 21-32 mmol/L Anion Gap 9.0 3-11 mmol/L Blood Urea Nitrogen 15 7-18 mg/dl Creatinine 1.10 0.60-1.40 mg/dl Est Creatinine Clear Calc Drug Dose 42.6 ml/min Estimated GFR () 68.6 Estimated GFR (Non- 59.2 BUN/Creatinine Ratio 13.7 10-20 Random Glucose 127 70-99 mg/dl Calcium Level 8.6 8.5-10.1 mg/dl Magnesium Level 2.0 1.8-2.4 mg/dl Total Bilirubin 1.3 0.2-1 mg/dl Aspartate Amino Transf (AST/SGOT) 21 15-37 U/L Alanine Aminotransferase (ALT/SGPT) 35 12-78 U/L Alkaline Phosphatase 86 45-117 U/L Total Protein 6.7 6.4-8.2 gm/dl Albumin 3.3 3.4-5.0 gm/dl Globulin 3.4 2.5-4.0 gm/dl Albumin/Globulin Ratio 1.0 0.9-2
--- NOTE | 2016-06-17 14:48 | Progress Note ---
Progress Note Date of Service Jun 17, 2016. Progress Note Patient is an 89 year old M scheduled for Laparscopy Cholecystectomy with Dr Brunner. PMH is remarkable for AFib with a pacer. The patient is also anticoagulated on Coumadin with his last dose on the day of admission. He also has HTN. He has excellent functional capacity for his age, lives alone, and climbs stairs daily. He is unaware what brand of pacemaker he has in place. Labs are remarkable for an INR of 1.9, down from 2.0. He has been given a dose of VitK. Airway exam reveals significant non painful stiffness of the cervical spine, but is otherwise reassuring. His ECG showed him to be 100% V paced with underlying AFib. As all of his ventricular beats are paced, it is unclear whether he has an underlying ventricular rhythm. Anticipate GA. His coagulation status will be checked in the morning. Pacer pads will be available if necessary given the patient's questionable underlying rhythm. Risks and benefits were discussed and consent obtained.
[2016-06-17] MEDS: NSS + 20MEQ KCL 1000ML 1,000 ML IV SCH (15:43)
[2016-06-18] VITALS (9 sets, daily range): BP systolic 108–157; BP diastolic 67–90; PULSE 60–61; TEMP 36.8–37.3; O2SAT 93–98
[2016-06-18] MEDS: NSS + 20MEQ KCL 1000ML 1,000 ML IV SCH ×3 (00:54→20:39)
[2016-06-18] MEDS: PIPERACILL/TAZOBAC IV 3.375 GM in DEXTROSE 5% 100ML 100 ML IV SCH ×3 (00:59→18:43)
[2016-06-18 06:42] LABS: HEMATOCRIT 34.1 % (42-52); MEAN CELL VOLUME 99.4 fL (80-100); MEAN CORPUSCULAR HEMOGLOBIN 33.2 pg (25-34); MEAN CORPUSCULAR HGB CONC 33.4 g/dl (32-36); MEAN PLATELET VOLUME 10.8 fL (7.4-10.4); PLATELET COUNT 106 K/uL (130-400); RED BLOOD COUNT 3.43 M/uL (4.7-6.1); WHITE BLOOD COUNT 10.28 K/uL (4.8-10.8)
[2016-06-18 07:11] LABS: BUN/CREATININE RATIO 16.3 (10-20); CALCIUM 7.5 mg/dl (8.5-10.1); CREATININE 1.2 mg/dl (0.60-1.40); MAGNESIUM 2.3 mg/dl (1.8-2.4)
[2016-06-18] MEDS: CARVEDILOL 12.5 MG TAB PO SCH ×2 (09:00→20:39)
--- NOTE | 2016-06-18 09:09 | Surgery Progress Note ---
Surgery Progress Note Date of Service Jun 18, 2016. Subjective Post OP Day: HD 3 + ambulating, + bowel movement, + complaints (still some pain), No nausea, No vomiting Objective Vital Signs: Date Time Temp Pulse Resp B/P Pulse Ox O2 Delivery O2 Flow Rate FiO2 06/18/16 07:35 Room Air 06/18/16 07:20 37.2 61 16 118/73 93 Room Air 06/17/16 23:20 Room Air 06/17/16 23:20 37.5 64 16 99/58 93 Room Air 06/17/16 17:48 37.5 06/17/16 15:18 37.7 62 14 120/72 92 Room Air 06/17/16 09:23 37.7 General Appearance: WD/WN, no apparent distress Head: normocephalic, atraumatic Neck: supple, trachea midline Respiratory/Chest: lungs clear Cardiovascular: regular rate, rhythm Abdomen: normal bowel sounds, non distended, soft, + tenderness Extremities: non-tender, no pedal edema Laboratory Results: Results Past 24 Hours Test 06/18/16 06:20 06/18/16 07:59 Range/Units White Blood Count 10.28 4.8-10.8 K/uL Red Blood Count 3.43 4.7-6.1 M/uL Hemoglobin 11.4 14.0-18.0 g/dL Hematocrit 34.1 42-52 % Mean Corpuscular Volume 99.4 80-100 fL Mean Corpuscular Hemoglobin 33.2 25-34 pg Mean Corpuscular Hemoglobin Concent 33.4 32-36 g/dl RDW Standard Deviation 54.2 36.4-46.3 fL RDW Coefficient of Variation 14.9 11.5-14.5 % Platelet Count 106 130-400 K/uL Mean Platelet Volume 10.8 7.4-10.4 fL Sodium Level 140 136-145 mmol/L Potassium Level 4.0 3.5-5.1 mmol/L Chloride Level 110 98-107 mmol/L Carbon Dioxide Level 22 21-32 mmol/L Anion Gap 8.0 3-11 mmol/L Blood Urea Nitrogen 20 7-18 mg/dl Creatinine 1.20 0.60-1.40 mg/dl Est Creatinine Clear Calc Drug Dose 39.0 ml/min Estimated GFR () 61.8 Estimated GFR (Non- 53.3 BUN/Creatinine Ratio 16.3 10-20 Random Glucose 151 70-99 mg/dl Calcium Level 7.5 8.5-10.1 mg/dl Magnesium Level 2.3 1.8-2.4 mg/dl Assessment & Plan acute cholecystitis -IV abx -clears -to OR for lap gage
[2016-06-18 09:31] LABS: INR 1.3 (0.9-1.1); PROTHROMBIN TIME (PATIENT) 14.2 SECONDS (9.0-12.0)
[2016-06-18] MEDS ORDERED: FENTANYL CITRATE INJ 50 MCG/1 ML 2 ML VIAL ONE ×3 (11:04→13:24)
[2016-06-18] MEDS ORDERED: DEXAMETHASONE SOD INJ 4 MG/ML VIAL ONE ×2 (11:04→13:21)
[2016-06-18] MEDS ORDERED: PROPOFOL IV EMULSION 10 MG/ML 20 ML VIAL IV ONE ×2 (11:04→13:18)
[2016-06-18] MEDS ORDERED: ROCURONIUM BROMIDE 10 MG/ML 5 ML VIAL ONE ×2 (11:04→13:18)
[2016-06-18] MEDS ORDERED: ONDANSETRON INJ 2 MG/ML 2 ML VIAL ONE ×2 (11:04→13:22)
[2016-06-18] MEDS ORDERED: LIDOCAINE HCL 2% 2 ML VIAL (20MG/ML) ONE ×2 (11:04→13:18)
[2016-06-18] MEDS ORDERED: MIDAZOLAM HCL 1 MG/ML 2ML VIAL ONE (11:04)
[2016-06-18] MEDS ORDERED: GLYCOPYRROLATE INJ 0.2 MG/ML VIAL ONE ×2 (11:04→13:18)
[2016-06-18] MEDS ORDERED: NEOSTIGMINE METHYLSULFATE 5 MG/5 ML SYR ONE ×2 (11:04→13:18)
[2016-06-18] MEDS ORDERED: BUPIVACAINE/EPINEPHRINE 0.5% MPF 1:200,000 30 ML VIAL ONE (12:38)
[2016-06-18] MEDS ORDERED: ATROPINE SULFATE 0.1 MG/ML 5ML SYR IV PRN (13:15)
[2016-06-18] MEDS ORDERED: HYDROmorphone INJ 1 MG/ML SYR IV PRN (13:15)
[2016-06-18] MEDS ORDERED: FENTANYL CITRATE INJ 50 MCG/1 ML 2 ML VIAL IV PRN (13:15)
[2016-06-18] MEDS ORDERED: ONDANSETRON INJ 2 MG/ML 2 ML VIAL IV PRN (13:15)
[2016-06-18] MEDS ORDERED: EpHEDrine SULFATE INJ 50 MG/ML AMP IV PRN (13:15)
[2016-06-18] MEDS ORDERED: CEFAZOLIN SOD 1 GM VIAL ONE (13:21)
--- NOTE | 2016-06-18 13:51 | [facility] Post Operative Brief Note ---
Immediate Operative Summary Operative Date Jun 18, 2016. Pre-Operative Diagnosis Acute Cholecystitis Post-Operative Diagnosis Same as preoperative Procedure(s) Performed Laparoscopic Cholecystectomy Surgeon Dr. Brunner Expert Witness Surgeon(s) Lela Stubbs PA-C Estimated Blood Loss 50ml Findings gangrenous gallbladder Specimens CULTURE: A.) Gallbladder and Contents MICROBIOLOGY: 1.) Bile Drains wyatt drain in GB fossa Anesthesia GETA w/marcaine Complication(s) None Disposition Recovery Room / PACU
[2016-06-18] MEDS ORDERED: OXYCODONE/ACETAMINOPHEN 5-325 TAB PO PRN (14:00)
[2016-06-18] MEDS ORDERED: MoRPHine SULFATE 2 MG/ML CARP IV PRN (14:00)
--- NOTE | 2016-06-18 14:18 | OPERATIVE REPORT ---
DATE OF OPERATION: 06/18/2016 PREOPERATIVE DIAGNOSIS: Acute cholecystitis. POSTOPERATIVE DIAGNOSIS: Acute gangrenous cholecystitis. PROCEDURE: Laparoscopic cholecystectomy . STAFF SURGEON: Dr. Jevon Brunner. DERMATOLOGY NURSE: Lela Martínez PA-C. ANESTHESIA: General endotracheal 0.5% Marcaine with epinephrine local. ESTIMATED BLOOD LOSS: 50 mL. COMPLICATIONS: None. DRAINS: Tim drain left in the gallbladder fossa. SPECIMENS: Gallbladder sent to pathology. Intraoperative cultures of bile taken. INDICATION FOR PROCEDURE: This is a 89-year-old male who was admitted through the ER with acute cholecystitis. He was on Coumadin. Coumadin was corrected. He was maintained on IV antibiotics and he will be taken to the OR for laparoscopic cholecystectomy. We went over the risk of an open procedure, common duct injury, retained common bile duct stone, postop bile leak, bleeding requiring transfusion and wound problems. He understands this and wishes to proceed. DESCRIPTION OF PROCEDURE: The patient was taken to the OR and underwent excellent general endotracheal anesthesia. His abdomen was prepped and draped in normal sterile fashion. Transverse supraumbilical incision was made and dissection was taken down to identify his anterior fascia. Vicryl 2-0 was placed in either side of midline. The midline was incised sharply. Edwin trocar was then inserted. Good pneumoperitoneum achieved to 15 mmHg pressure. An 11 subxiphoid and 2 lateral 5 ports were placed in normal fashion. The patient was placed in head up and rolled to the left. The gallbladder was identified. There were no omental adhesions. It was, however, a gangrenous gallbladder. This was aspirated and bile was sent for culture. A grasper was used to grasp the fundus and the gallbladder basically fell apart. The wall was grasped with some tension and the gallbladder was able to be removed superiorly. The neck was then grasped and this also was gangrenous. A portion of the neck could be held to lift up the neck laterally. Using blunt and sharp dissection, the cystic duct was identified. The cystic duct itself appeared to be viable and not gangrenous. A medial and lateral window was created in the gallbladder and gallbladder fossa showing the cystic duct and cystic artery. The artery was inflamed but was clipped and cut. The cystic duct was identified. Critical view was seen with the cystic plate visible and the duct going straight to the gallbladder. Once this was ensured, 3 clips were placed distally on the cystic duct, 1 proximally and the cystic duct was transected. Electrocautery hook was then used to remove the gallbladder from gallbladder fossa. This was extremely inflamed and very friable. His liver was also fatty and made bleeding at the gallbladder fossa a problem. Using cautery this was cauterized. As we went along the gallbladder was brought out with an Endobag and sent for pathologic evaluation. There were still areas on the gallbladder fossa which were oozing blood. This was then cauterized and then 2 sheets of Surgicel were used to clot the blood. The abdomen was irrigated out and suctioned clear which watching the gallbladder fossa with Surgicel. There was no bleeding through the Surgicel. No other active bleeding could be seen. The clips were well placed in the duct and artery. The ports were then removed, except one of the lateral ports was used to place a Tim drain in the gallbladder fossa and secure it with a nylon suture. The pneumoperitoneum was then decompressed. 0 Vicryl was used to close the fascial defect, 0.5% Marcaine with epinephrine local was used to create a local field block. Interrupted 3-0 Vicryl was used to close the subQ space. Interrupted Vicryl was used to close the skin. Steri-Strips and benzoin were used to reinforce the incision. Sterile dressings were applied. The patient tolerated the procedure well without any complications, sent to postop recovery for a period of observation and be sent to the floor for his care. I attest to the content of the Intraoperative Record and any orders documented therein. Any exceptions are noted below. URMILA
[2016-06-18] MEDS ORDERED: MoRPHine SULFATE 4 MG/ML 1 ML CARP\\VIAL IV PRN (14:30)
--- NOTE | 2016-06-18 14:34 | Anesthesiology Progress Note ---
Anesthesia Post Op Note Date & Time Jun 18, 2016 at 14:34 Vital Signs Pain Intensity: 0 Vital Signs Past 12 Hours Date Time Temp Pulse Resp B/P Pulse Ox O2 Delivery O2 Flow Rate FiO2 06/18/16 14:25 37.0 60 18 137/80 95 Nasal Cannula 2 06/18/16 14:15 61 18 147/82 99 Mask 10 06/18/16 14:05 61 18 141/75 98 Mask 10 06/18/16 13:59 37.5 60 18 140/84 99 Mask 10 06/18/16 07:35 Room Air 06/18/16 07:20 37.2 61 16 118/73 93 Room Air Notes Mental Status: alert / awake / arousable, participated in evaluation Pt Amnestic to Procedure: Yes Nausea / Vomiting: adequately controlled Pain: adequately controlled Airway Patency, RR, SpO2: stable & adequate BP & HR: stable & adequate Hydration State: stable & adequate Anesthetic Complications: no major complications apparent
[2016-06-18] MEDS: ONDANSETRON INJ 2 MG/ML 2 ML VIAL IV PRN (15:26)
--- NOTE | 2016-06-18 18:24 | Progress Note ---
Medicine Progress Note Date & Time of Visit: Jun 18, 2016 at 18:11. Subjective Pt was seen and examined Lying in be with no distress he is getting ready to eat his jello when I entered the room He had surgery done this morning for the acute cholecystitis he said that he feels tired pain is control denies any chest pain, palpitation and sob Objective Last 8 Hrs Date Time Temp Pulse Resp B/P Pulse Ox O2 Delivery O2 Flow Rate FiO2 06/18/16 17:54 37.2 60 17 138/83 98 Nasal Cannula 2.0 06/18/16 16:52 37.0 60 17 129/75 98 Nasal Cannula 2.0 06/18/16 15:50 36.8 60 16 138/77 98 Nasal Cannula 2.0 06/18/16 15:20 36.8 60 18 142/90 96 Nasal Cannula 2.0 06/18/16 14:50 Nasal Cannula 2.0 06/18/16 14:50 37.2 61 16 157/82 97 Nasal Cannula 2.0 06/18/16 14:50 97 Nasal Cannula 2.0 06/18/16 14:35 37.0 60 18 143/84 95 Nasal Cannula 2 06/18/16 14:25 37.0 60 18 137/80 95 Nasal Cannula 2 06/18/16 14:15 61 18 147/82 99 Mask 10 06/18/16 14:05 61 18 141/75 98 Mask 10 06/18/16 13:59 37.5 60 18 140/84 99 Mask 10 Physical Exam: General- No acute distress Head- atraumatic Eyes- PERRL, EOMI ENT- oropharynx clear Neck- supple, no JVD Lungs- No crackle Heart- regular rhythm; no murmur Abdomen- normal bowel sounds, +tenderness Extremities- no calf tenderness Neuro- alert, oriented, PERRL, EOMI Laboratory Results: Last 24 Hours Test 06/18/16 06:20 06/18/16 09:10 White Blood Count 10.28 K/uL Red Blood Count 3.43 M/uL Hemoglobin 11.4 g/dL Hematocrit 34.1 % Mean Corpuscular Volume 99.4 fL Mean Corpuscular Hemoglobin 33.2 pg Mean Corpuscular Hemoglobin Concent 33.4 g/dl RDW Standard Deviation 54.2 fL RDW Coefficient of Variation 14.9 % Platelet Count 106 K/uL Mean Platelet Volume 10.8 fL Sodium Level 140 mmol/L Potassium Level 4.0 mmol/L Chloride Level 110 mmol/L Carbon Dioxide Level 22 mmol/L Anion Gap 8.0 mmol/L Blood Urea Nitrogen 20 mg/dl Creatinine 1.20 mg/dl Est Creatinine Clear Calc Drug Dose 39.0 ml/min Estimated GFR () 61.8 Estimated GFR (Non- 53.3 BUN/Creatinine Ratio 16.3 Random Glucose 151 mg/dl Calcium Level 7.5 mg/dl Magnesium Level 2.3 mg/dl Prothrombin Time 14.2 SECONDS Prothromb Time International Ratio 1.3 Date/Time Source Procedure Growth Status 06/18/16 13:19 Aspirate - Other Bile Duct Gram Stain Pending Received 06/18/16 13:19 Aspirate - Other Bile Duct Bacterial Culture Pending Received Assessment & Plan ACUTE CHOLECYSTITIS -S/P day# [address] Brunner with no acute complications -CT of the Abdomen and HIDA scan suggestive of Acute Cholecystitis -IV Zosyn ,Gentle IVF ,pain medication -Started on clear liquid diet - Monitor CBC ATRIAL FIBRILLATION /H/O SICK SINUS SYNDROME -controlled paced rhythm -PPM checked -Coumadin held for the surgery -continue BB - Resume coumadin tomorrow VALVULAR DISEASE -h/o mitral regurgitation and aortic insufficiency - lasix on hold -Echo ::Left ventricular systolic function is normal. * Ejection Fraction = 55-60%. * There is mild concentric left ventricular hypertrophy. * Apical wall motion abnormality may reflect pacemaker activation. * The left atrium is severely dilated. * Mild to moderate aortic regurgitation. * There is mild mitral regurgitation. * There is moderate to severe tricuspid regurgitation. * The estimated systolic PAP is 50mmHg. 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 * IVC was not visualized. HTN -stable -continue BB -Lisinopril on Hold, will resume tomorrow DVT PROPHYLAXIS: SCDs RE: surgery CODE STATUS: FULL CODE Consultants: Surgery Current Inpatient Medications: Current Inpatient Medications Medications (Trade) Dose Ordered Sig/Marek Route Start Time Stop Time Status Last Admin Dose Admin Ioversol (Optiray 320) 111 ml UD PRN IV 06/16/16 09:00 06/20/16 08:59 Piperacillin Sod/ Tazobactam Sod (Consult) 1 ea UD PRN N/A 3/26/17 11:30 07/16/16 11:29 Acetaminophen (Tylenol Tab) 650 mg Q4H PRN PO 06/16/16 11:45 07/16/16 11:44 06/17/16 15:34 650 MG Ondansetron HCl (Zofran Inj) 4 mg Q6H PRN IV 06/16/16 11:45 07/16/16 11:44 06/18/16 15:26 4 MG Carvedilol 12.5 mg 12.5 mg BID PO 06/16/16 21:00 07/16/16 20:59 06/17/16 20:00 12.5 MG Piperacillin Sod/ Tazobactam Sod 3.375 gm/Dextrose 115 ml @ 28.75 mls/ hr Q8H IV 06/17/16 18:00 06/26/16 15:59 06/18/16 09:49 28.75 MLS/HR Potassium Chloride/Sodium Chloride (Nss + 20meq KCl 1000ml) 1,000 ml @ 100 mls/hr Q10H IV 06/17/16 15:15 07/17/16 15:14 06/18/16 10:44 100 MLS/HR Fentanyl Citrate (Fentanyl Inj) 25 mcg Q5M PRN IV 06/18/16 13:15 06/18/16 18:15 Hydromorphone HCl (Dilaudid Inj) 0.25 mg Q5M PRN IV 06/18/16 13:15 06/18/16 18:15 Ondansetron HCl (Zofran Inj) 4 mg ONE PRN IV 06/18/16 13:15 06/18/16 18:15 Ephedrine Sulfate (EpHEDrine SULFATE INJ) 5 mg Q5M PRN IV 06/18/16 13:15 06/18/16 18:15 Atropine Sulfate (Atropine Sulfate 0.1MG/Ml Inj) 0.5 mg Q1M PRN IV 06/18/16 13:15 06/18/16 18:15 Morphine Sulfate (MoRPHine SULFATE INJ) 2 mg Q1H PRN IV 06/18/16 14:00 07/02/16 13:59 06/18/16 15:39 2 MG Oxycodone/ Acetaminophen (Percocet 5-325mg Tab) `1-2 tabs for pain 1 tab ... Q4H PRN PO 06/18/16 14:00 07/02/16 13:59 Morphine Sulfate (MoRPHine SULFATE INJ) 4 mg Q1H PRN IV 06/18/16 14:30 07/02/16 14:29
[2016-06-19] VITALS (9 sets, daily range): BP systolic 118–151; BP diastolic 69–84; PULSE 58–72; TEMP 36.5–37.3; O2SAT 95–98
[2016-06-19] MEDS: PIPERACILL/TAZOBAC IV 3.375 GM in DEXTROSE 5% 100ML 100 ML IV SCH ×3 (01:52→17:26)
[2016-06-19] MEDS: CALCIUM CARBONATE 500 MG CHEWABLE PO PRN (05:34)
[2016-06-19 07:15] LABS: HEMATOCRIT 33.1 % (42-52); MEAN CELL VOLUME 98.5 fL (80-100); MEAN CORPUSCULAR HEMOGLOBIN 32.7 pg (25-34); MEAN CORPUSCULAR HGB CONC 33.2 g/dl (32-36); MEAN PLATELET VOLUME 10.3 fL (7.4-10.4); PLATELET COUNT 132 K/uL (130-400); RED BLOOD COUNT 3.36 M/uL (4.7-6.1); WHITE BLOOD COUNT 10.46 K/uL (4.8-10.8)
[2016-06-19] MEDS: NSS + 20MEQ KCL 1000ML 1,000 ML IV SCH (07:24)
[2016-06-19] MEDS: ACETAMINOPHEN 325 MG TAB PO PRN ×2 (07:26→17:26)
[2016-06-19 07:49] LABS: BUN/CREATININE RATIO 19.5 (10-20); CALCIUM 7.9 mg/dl (8.5-10.1); CREATININE 1.1 mg/dl (0.60-1.40); POTASSIUM 4.4 mmol/L (3.5-5.1)
[2016-06-19] MEDS ORDERED: ALBUT/IPRATROP 3MG/0.5MG NEB 3 ML VIAL INH STA (08:13)
[2016-06-19] MEDS ORDERED: ALBUT/IPRATROP 3MG/0.5MG NEB 3 ML VIAL INH PRN (08:15)
[2016-06-19] MEDS: CARVEDILOL 12.5 MG TAB PO SCH ×2 (08:25→20:40)
--- NOTE | 2016-06-19 08:32 | DIAGNOSTIC IMAGING REPORT ---
CHEST ONE VIEW PORTABLE CLINICAL HISTORY: Shortness of breath. COMPARISON STUDY: Chest radiograph June 16, 2016. FINDINGS: A right subclavian pacemaker is in place. There is no evidence of pulmonary edema. Cardiomegaly is unchanged. There is mild right basilar opacity and possible trace right pleural effusion. IMPRESSION: 1. Mild right basilar opacity which likely reflects atelectasis. Possible trace right pleural effusion. 2. No evidence of pulmonary edema. Electronically signed by: Jhoan Rhoades M.D. 06/19/2016 8:31 AM Dictated Date/Time: 06/19/2016 8:29 AM
--- NOTE | 2016-06-19 10:14 | Hospitalist Progress Note ---
Hospitalist Progress Note Date of Service Jun 19, 2016. Subjective Patient seen and examined. Has audible wheezing this morning. Reports mild shortness of breath. No cough or sputum production. Denies chest pain or palpitations. Incisional pain is controlled. No nausea. Appetite is good. Required straight cath last night x 1, reports burning with urination this morning. Objective Vital Signs Date Time Temp Pulse Resp B/P Pulse Ox O2 Delivery O2 Flow Rate FiO2 06/19/16 08:33 61 16 95 Room Air 06/19/16 07:55 36.7 60 18 128/78 97 Nasal Cannula 2.0 06/19/16 03:15 37.3 58 18 137/83 98 Nasal Cannula 2.0 06/18/16 23:09 37.3 61 18 147/81 97 Nasal Cannula 2.0 06/18/16 20:30 60 108/67 06/18/16 19:55 36.8 61 17 115/73 93 Nasal Cannula 2.0 06/18/16 19:30 Room Air 06/18/16 17:54 37.2 60 17 138/83 98 Nasal Cannula 2.0 06/18/16 16:52 37.0 60 17 129/75 98 Nasal Cannula 2.0 06/18/16 15:50 36.8 60 16 138/77 98 Nasal Cannula 2.0 06/18/16 15:20 36.8 60 18 142/90 96 Nasal Cannula 2.0 06/18/16 14:50 Nasal Cannula 2.0 06/18/16 14:50 37.2 61 16 157/82 97 Nasal Cannula 2.0 06/18/16 14:50 97 Nasal Cannula 2.0 06/18/16 14:35 37.0 60 18 143/84 95 Nasal Cannula 2 06/18/16 14:25 37.0 60 18 137/80 95 Nasal Cannula 2 06/18/16 14:15 61 18 147/82 99 Mask 10 06/18/16 14:05 61 18 141/75 98 Mask 10 06/18/16 13:59 37.5 60 18 140/84 99 Mask 10 Physical Exam General Appearance: no apparent distress Eyes: normal inspection ENT: hearing grossly normal Neck: supple, no JVD Respiratory/Chest: no respiratory distress, + wheezing (audible, expiratory, throughout all lung baum ) Cardiovascular: regular rate, rhythm, no edema Abdomen: normal bowel sounds, + distended, + pertinent finding (MYRANDA in place to right abdomen with serosanguinous drainage, surgical dressing intact, mild incisional tenderness) Extremities: normal range of motion, non-tender, normal inspection Neurologic/Psychiatric: no motor/sensory deficits, alert, normal mood/affect, oriented x 3 Skin: normal color, warm/dry Laboratory Results Last 24 Hours Test 06/19/16 06:55 White Blood Count 10.46 K/uL Red Blood Count 3.36 M/uL Hemoglobin 11.0 g/dL Hematocrit 33.1 % Mean Corpuscular Volume 98.5 fL Mean Corpuscular Hemoglobin 32.7 pg Mean Corpuscular Hemoglobin Concent 33.2 g/dl RDW Standard Deviation 53.3 fL RDW Coefficient of Variation 14.8 % Platelet Count 132 K/uL Mean Platelet Volume 10.3 fL Sodium Level 140 mmol/L Potassium Level 4.4 mmol/L Chloride Level 108 mmol/L Carbon Dioxide Level 24 mmol/L Anion Gap 8.0 mmol/L Blood Urea Nitrogen 21 mg/dl Creatinine 1.10 mg/dl Est Creatinine Clear Calc Drug Dose 42.6 ml/min Estimated GFR () 68.6 Estimated GFR (Non- 59.2 BUN/Creatinine Ratio 19.5 Random Glucose 175 mg/dl Calcium Level 7.9 mg/dl Diagnostic Results CXR IMPRESSION: 1. Mild right basilar opacity which likely reflects atelectasis. Possible trace right pleural effusion. 2. No evidence of pulmonary edema. Assessment and Plan ACUTE CHOLECYSTITIS - POD# 1 - lap gage by Dr. Brunner, no complications - CT of the Abdomen and HIDA scan suggestive of Acute Cholecystitis - on IV Zosyn (day #4), will d/c IVF today due to wheezing/volume overload - tolerating clears, advance diet as per surgery SHORTNESS OF BREATH/WHEEZING - saturating well on room air - likely due to volume overload - will d/c IVF, order nebs, and resume Lasix - CXR shows small right pleural effusion, no consolidation ATRIAL FIBRILLATION H/O SICK SINUS SYNDROME S/P PACEMAKER - heart auscultates to regular on exam - on beta isabel for rate control - Coumadin on hold for surgery - will resume today - ok with surgery VALVULAR DISEASE - resuming Lasix today - Echo:Left ventricular systolic function is normal. * Ejection Fraction = 55-60%. * There is mild concentric left ventricular hypertrophy. * Apical wall motion abnormality may reflect pacemaker activation. * The left atrium is severely dilated. * Mild to moderate aortic regurgitation. * There is mild mitral regurgitation. * There is moderate to severe tricuspid regurgitation. * The estimated systolic PAP is 50mmHg. 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 * IVC was not visualized. URINARY RETENTION - required straight cath x 1 - likely due to anesthesia - voiding on his own this AM but reports burning - check U/A and cath - noted patient on Zosyn HTN - stable - continue beta isabel - lisinopril held pre op, will continue to hold as BP remains controlled DVT PROPHYLAXIS - SCDs, resuming Coumadin today CODE STATUS - Full code as per admission H&P
--- NOTE | 2016-06-19 10:33 | Surgery Progress Note ---
Surgery Progress Note Date of Service Jun 19, 2016. Subjective Post OP Day: 1 + SOB, + ambulating, + diet (tolerating clear liquids), + feeling well, + flatus , No chest pain, No complaints, No nausea, No vomiting burning on urination had straight cath last night x 1 Objective Vital Signs: Date Time Temp Pulse Resp B/P Pulse Ox O2 Delivery O2 Flow Rate FiO2 06/19/16 09:51 97 Nasal Cannula 2.0 06/19/16 08:33 61 16 95 Room Air 06/19/16 07:55 36.7 60 18 128/78 97 Nasal Cannula 2.0 06/19/16 03:15 37.3 58 18 137/83 98 Nasal Cannula 2.0 06/18/16 23:09 37.3 61 18 147/81 97 Nasal Cannula 2.0 06/18/16 20:30 60 108/67 06/18/16 19:55 36.8 61 17 115/73 93 Nasal Cannula 2.0 06/18/16 19:30 Room Air 06/18/16 17:54 37.2 60 17 138/83 98 Nasal Cannula 2.0 06/18/16 16:52 37.0 60 17 129/75 98 Nasal Cannula 2.0 06/18/16 15:50 36.8 60 16 138/77 98 Nasal Cannula 2.0 06/18/16 15:20 36.8 60 18 142/90 96 Nasal Cannula 2.0 06/18/16 14:50 Nasal Cannula 2.0 06/18/16 14:50 37.2 61 16 157/82 97 Nasal Cannula 2.0 06/18/16 14:50 97 Nasal Cannula 2.0 06/18/16 14:35 37.0 60 18 143/84 95 Nasal Cannula 2 06/18/16 14:25 37.0 60 18 137/80 95 Nasal Cannula 2 06/18/16 14:15 61 18 147/82 99 Mask 10 06/18/16 14:05 61 18 141/75 98 Mask 10 06/18/16 13:59 37.5 60 18 140/84 99 Mask 10 General Appearance: WD/WN, no apparent distress Head: normocephalic, atraumatic Neck: trachea midline Respiratory/Chest: no respiratory distress, no accessory muscle use, + crackles , + rales, + wheezing Cardiovascular: regular rate, rhythm Abdomen: non distended, soft, + tenderness (appropriate post op, mostly at incision sites) Incision(s): clean, dry, intact, drainage (drainage from right lateral incision site of ze drain, ze drain intact) Extremities: no pedal edema Laboratory Results: Results Past 24 Hours Test 06/19/16 06:55 Range/Units White Blood Count 10.46 4.8-10.8 K/uL Red Blood Count 3.36 4.7-6.1 M/uL Hemoglobin 11.0 14.0-18.0 g/dL Hematocrit 33.1 42-52 % Mean Corpuscular Volume 98.5 80-100 fL Mean Corpuscular Hemoglobin 32.7 25-34 pg Mean Corpuscular Hemoglobin Concent 33.2 32-36 g/dl RDW Standard Deviation 53.3 36.4-46.3 fL RDW Coefficient of Variation 14.8 11.5-14.5 % Platelet Count 132 130-400 K/uL Mean Platelet Volume 10.3 7.4-10.4 fL Sodium Level 140 136-145 mmol/L Potassium Level 4.4 3.5-5.1 mmol/L Chloride Level 108 98-107 mmol/L Carbon Dioxide Level 24 21-32 mmol/L Anion Gap 8.0 3-11 mmol/L Blood Urea Nitrogen 21 7-18 mg/dl Creatinine 1.10 0.60-1.40 mg/dl Est Creatinine Clear Calc Drug Dose 42.6 ml/min Estimated GFR () 68.6 Estimated GFR (Non- 59.2 BUN/Creatinine Ratio 19.5 10-20 Random Glucose 175 70-99 mg/dl Calcium Level 7.9 8.5-10.1 mg/dl Microbiology Results 06/18/16 Gram Stain - Final, Resulted 06/18/16 Bacterial Culture, Resulted Pending Assessment & Plan POD # 1 s/p Laparoscopic Cholecystectomy - vital signs stable - no leukocytosis - + wheezing, CXR shows right basilar atelectasis possible trace right pleural effusion - tolerating clear liquids - ZE drainage, serosanguineous 105 cc output required and 20 cc in bulb - + dysuria - H&H stable Plan: Advance diet to full liquids for lunch Given Nebulizer by Medicine for wheezing and IVF discontinued, Lasix will be started per Medicine Encouraged incentive spirometry ZE drain stripped, continue to bulb suction, dressing changed Urinalysis for dysuria Coumadin resumed today per medicine, will not bridge, H&H stable Please refer to medicine note today for further management
[2016-06-19] MEDS: FUROSEMIDE 20 MG TAB PO SCH (11:09)
[2016-06-19] MEDS ORDERED: WARFARIN SOD 1.25 MG TAB PO SCH (16:00)
[2016-06-19 16:31] LABS: URINE APPEARANCE CLOUDY (CLEAR); URINE BILIRUBIN NEG (NEG); URINE COLOR DK YELLOW; URINE NITRITE NEG (NEG); URINE SPECIFIC GRAVITY 1.022 (1.000-1.030); UROBILINOGEN NEG (NEG)
[2016-06-19 16:33] LABS: MANUAL MICROSCOPIC REQUIRED? NO; REVIEW REQ? YES
[2016-06-19 16:42] LABS: URINE PATH CASTS 0-3 GRANULAR CASTS /lpf (0)
[2016-06-20] MEDS: PIPERACILL/TAZOBAC IV 3.375 GM in DEXTROSE 5% 100ML 100 ML IV SCH ×3 (02:14→18:05)
[2016-06-20] MEDS: ONDANSETRON INJ 2 MG/ML 2 ML VIAL IV PRN (02:18)
[2016-06-20 05:55] LABS: MEAN CELL VOLUME 99.4 fL (80-100); MEAN CORPUSCULAR HGB CONC 34.2 g/dl (32-36); PLATELET COUNT 126 K/uL (130-400); RED BLOOD COUNT 3.32 M/uL (4.7-6.1); WHITE BLOOD COUNT 8.08 K/uL (4.8-10.8)
[2016-06-20 06:10] LABS: INR 1.2 (0.9-1.1); PROTHROMBIN TIME (PATIENT) 13.1 SECONDS (9.0-12.0)
[2016-06-20 06:22] LABS: CREATININE 1.1 mg/dl (0.60-1.40)
[2016-06-20 06:23] LABS: BUN/CREATININE RATIO 21.3 (10-20); CALCIUM 7.9 mg/dl (8.5-10.1); POTASSIUM 3.9 mmol/L (3.5-5.1)
[2016-06-20 07:08] VITALS: BP 136/80; PULSE 61; TEMP 36.9; O2SAT 93
--- NOTE | 2016-06-20 08:03 | Surgery Progress Note ---
Surgery Progress Note Date of Service Jun 20, 2016. Subjective Post OP Day: 2 + ambulating, + bowel movement, + diet (regular), + feeling well, No nausea, No vomiting Objective Vital Signs: Date Time Temp Pulse Resp B/P Pulse Ox O2 Delivery O2 Flow Rate FiO2 06/20/16 07:08 36.9 61 15 136/80 93 Room Air 06/19/16 22:50 37.2 61 17 118/69 95 Room Air 06/19/16 20:51 72 18 95 Room Air 06/19/16 20:30 67 151/84 06/19/16 19:05 Room Air 06/19/16 16:19 36.9 67 17 132/79 96 Room Air 06/19/16 12:03 36.5 62 18 138/82 97 Nasal Cannula 2.0 06/19/16 09:51 97 Nasal Cannula 2.0 06/19/16 08:33 61 16 95 Room Air Physical Exam: Tim drainage (slowing; drainage around catheter; out tomorrow) General Appearance: WD/WN, no apparent distress Head: normocephalic, atraumatic Neck: supple, trachea midline Respiratory/Chest: lungs clear Cardiovascular: regular rate, rhythm Abdomen: normal bowel sounds, non distended, soft, + tenderness Extremities: non-tender, no pedal edema Laboratory Results: Results Past 24 Hours Test 06/19/16 16:12 06/20/16 05:40 Range/Units Urine Color DK YELLOW Urine Appearance CLOUDY CLEAR Urine pH 5.0 4.5-7.5 Urine Specific [place] 1.022 1.000-1.030 Urine Protein TRACE NEG Urine Glucose (UA) NEG NEG Urine Ketones NEG NEG Urine Occult Blood TRACE NEG Urine Nitrite NEG NEG Urine Bilirubin NEG NEG Urine Urobilinogen NEG NEG Urine Leukocyte Esterase NEG NEG Urine WBC (Auto) 1-5 0-5 /hpf Urine RBC (Auto) 0-4 0-4 /hpf Urine Hyaline Casts (Auto) 1-5 0-5 /lpf Urine Epithelial Cells (Auto) 10-20 0-5 /lpf Urine Bacteria (Auto) NEG NEG Urine Crystals AMORPHOUS SEDIMENT NONE PRSENT Urine Pathogenic Casts 0-3 GRANULAR CASTS 0 /lpf Urine Yeast (Auto) NONE PRSENT White Blood Count 8.08 4.8-10.8 K/uL Red Blood Count 3.32 4.7-6.1 M/uL Hemoglobin 11.3 14.0-18.0 g/dL Hematocrit 33.0 42-52 % Mean Corpuscular Volume 99.4 80-100 fL Mean Corpuscular Hemoglobin 34.0 25-34 pg Mean Corpuscular Hemoglobin Concent 34.2 32-36 g/dl RDW Standard Deviation 52.9 36.4-46.3 fL RDW Coefficient of Variation 14.5 11.5-14.5 % Platelet Count 126 130-400 K/uL Mean Platelet Volume 10.0 7.4-10.4 fL Prothrombin Time 13.1 9.0-12.0 SECONDS Prothromb Time International Ratio 1.2 0.9-1.1 Sodium Level 139 136-145 mmol/L Potassium Level 3.9 3.5-5.1 mmol/L Chloride Level 105 98-107 mmol/L Carbon Dioxide Level 27 21-32 mmol/L Anion Gap 7.0 3-11 mmol/L Blood Urea Nitrogen 23 7-18 mg/dl Creatinine 1.10 0.60-1.40 mg/dl Est Creatinine Clear Calc Drug Dose 42.6 ml/min Estimated GFR () 68.6 Estimated GFR (Non- 59.2 BUN/Creatinine Ratio 21.3 10-20 Random Glucose 158 70-99 mg/dl Calcium Level 7.9 8.5-10.1 mg/dl Microbiology Results 06/19/16 Urine Culture, Received Pending Assessment & Plan s/p lap gage -drain out in AM -doing well with diet and activity -dosing anti-coagulation -good progress
[2016-06-20] MEDS: CARVEDILOL 12.5 MG TAB PO SCH ×2 (08:34→22:11)
[2016-06-20] MEDS: FUROSEMIDE 20 MG TAB PO SCH (08:34)
[2016-06-20] MEDS: CALCIUM CARBONATE 500 MG CHEWABLE PO PRN (08:38)
--- NOTE | 2016-06-20 10:40 | Hospitalist Progress Note ---
Hospitalist Progress Note Date of Service Jun 20, 2016. Subjective Patient seen and examined. Sitting up in the chair. Diet advanced to regular - having some mild nausea. Incisional pain is controlled. Reports small formed bowel movement this AM. Wheezing and shortness of breath improved. No cough. Denies chest pain or palpitations Objective Vital Signs Date Time Temp Pulse Resp B/P Pulse Ox O2 Delivery O2 Flow Rate FiO2 06/20/16 07:50 Room Air 06/20/16 07:08 36.9 61 15 136/80 93 Room Air 06/19/16 22:50 37.2 61 17 118/69 95 Room Air 06/19/16 20:51 72 18 95 Room Air 06/19/16 20:30 67 151/84 06/19/16 19:05 Room Air 06/19/16 16:19 36.9 67 17 132/79 96 Room Air 06/19/16 12:03 36.5 62 18 138/82 97 Nasal Cannula 2.0 Physical Exam General Appearance: no apparent distress Eyes: normal inspection ENT: hearing grossly normal Neck: supple, no JVD Respiratory/Chest: no respiratory distress, + wheezing (scattered, faint, expiratory) Cardiovascular: regular rate, rhythm, no edema Abdomen: normal bowel sounds, + distended, + tenderness (incisional), + pertinent finding (MYRANDA in place draining serosanguineous drainage) Neurologic/Psychiatric: no motor/sensory deficits, alert, normal mood/affect, oriented x 3 Skin: normal color, warm/dry Laboratory Results Last 24 Hours Test 06/19/16 16:12 06/20/16 05:40 Urine Color DK YELLOW Urine Appearance CLOUDY Urine pH 5.0 Urine Specific [place] 1.022 Urine Protein TRACE Urine Glucose (UA) NEG Urine Ketones NEG Urine Occult Blood TRACE Urine Nitrite NEG Urine Bilirubin NEG Urine Urobilinogen NEG Urine Leukocyte Esterase NEG Urine WBC (Auto) 1-5 /hpf Urine RBC (Auto) 0-4 /hpf Urine Hyaline Casts (Auto) 1-5 /lpf Urine Epithelial Cells (Auto) 10-20 /lpf Urine Bacteria (Auto) NEG Urine Crystals AMORPHOUS SEDIMENT Urine Pathogenic Casts 0-3 GRANULAR CASTS /lpf Urine Yeast (Auto) White Blood Count 8.08 K/uL Red Blood Count 3.32 M/uL Hemoglobin 11.3 g/dL Hematocrit 33.0 % Mean Corpuscular Volume 99.4 fL Mean Corpuscular Hemoglobin 34.0 pg Mean Corpuscular Hemoglobin Concent 34.2 g/dl RDW Standard Deviation 52.9 fL RDW Coefficient of Variation 14.5 % Platelet Count 126 K/uL Mean Platelet Volume 10.0 fL Prothrombin Time 13.1 SECONDS Prothromb Time International Ratio 1.2 Sodium Level 139 mmol/L Potassium Level 3.9 mmol/L Chloride Level 105 mmol/L Carbon Dioxide Level 27 mmol/L Anion Gap 7.0 mmol/L Blood Urea Nitrogen 23 mg/dl Creatinine 1.10 mg/dl Est Creatinine Clear Calc Drug Dose 42.6 ml/min Estimated GFR () 68.6 Estimated GFR (Non- 59.2 BUN/Creatinine Ratio 21.3 Random Glucose 158 mg/dl Calcium Level 7.9 mg/dl Assessment and Plan ACUTE CHOLECYSTITIS - POD# 2 - lap gage by Dr. Brunner, no complications - CT of the Abdomen and HIDA scan suggestive of Acute Cholecystitis - on IV Zosyn (day #5) - diet advanced to regular by surgery SHORTNESS OF BREATH/WHEEZING - improving - continues to saturate well on room air - likely due to volume overload - IVF d/c'd yesterday and Lasix resumed - nebs - CXR shows small right pleural effusion, no consolidation ATRIAL FIBRILLATION H/O SICK SINUS SYNDROME S/P PACEMAKER - heart auscultates to regular on exam - on beta isabel for rate control - Coumadin on hold for surgery - resumes on 3 per home dosing VALVULAR DISEASE - Lasix resumed 3/ - Echo:Left ventricular systolic function is normal. * Ejection Fraction = 55-60%. * There is mild concentric left ventricular hypertrophy. * Apical wall motion abnormality may reflect pacemaker activation. * The left atrium is severely dilated. * Mild to moderate aortic regurgitation. * There is mild mitral regurgitation. * There is moderate to severe tricuspid regurgitation. * The estimated systolic PAP is 50mmHg. 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 * IVC was not visualized. URINARY RETENTION - resolved - required straight cath x 1 - likely due to anesthesia - U/A unremarkable; noted patient on Zosyn HTN - stable - continue beta isabel - lisinopril held pre op, will continue to hold as BP remains controlled DVT PROPHYLAXIS - SCDs while INR < 2.0, on Coumadin CODE STATUS - Full code as per admission H&P
[2016-06-20 14:47] VITALS: PULSE 72; O2SAT 93
[2016-06-20] MEDS: ALBUT/IPRATROP 3MG/0.5MG NEB 3 ML VIAL INH SCH ×2 (14:47→20:07)
[2016-06-20 15:40] VITALS: BP 148/76; PULSE 60; TEMP 37; O2SAT 97
[2016-06-20] MEDS ORDERED: WARFARIN SOD 2.5 MG TAB PO SCH (16:00)
[2016-06-20 20:08] VITALS: PULSE 68; O2SAT 96
[2016-06-20 22:11] VITALS: BP 138/71; PULSE 60
[2016-06-20 22:48] VITALS: BP 132/76; PULSE 60; TEMP 37.2; O2SAT 97
[2016-06-21 01:53] VITALS: PULSE 64; O2SAT 97
[2016-06-21] MEDS: ALBUT/IPRATROP 3MG/0.5MG NEB 3 ML VIAL INH SCH ×2 (01:53→07:44)
[2016-06-21 06:53] LABS: HEMATOCRIT 31.5 % (42-52); MEAN CELL VOLUME 98.4 fL (80-100); MEAN CORPUSCULAR HEMOGLOBIN 33.4 pg (25-34); MEAN PLATELET VOLUME 9.8 fL (7.4-10.4); PLATELET COUNT 145 K/uL (130-400); WHITE BLOOD COUNT 11.36 K/uL (4.8-10.8)
[2016-06-21 07:05] LABS: INR 1.5 (0.9-1.1); PROTHROMBIN TIME (PATIENT) 16.3 SECONDS (9.0-12.0)
[2016-06-21 07:28] LABS: BUN/CREATININE RATIO 19.2 (10-20); CALCIUM 7.9 mg/dl (8.5-10.1); CREATININE 0.87 mg/dl (0.60-1.40); POTASSIUM 3.5 mmol/L (3.5-5.1)
[2016-06-21 07:44] VITALS: PULSE 61; O2SAT 96
[2016-06-21] MEDS ORDERED: OXYC-57 PO (07:50)
[2016-06-21] MEDS ORDERED: AMOX875T PO (07:50)
[2016-06-21] MEDS: CARVEDILOL 12.5 MG TAB PO SCH (07:51)
[2016-06-21] MEDS: FUROSEMIDE 20 MG TAB PO SCH (07:51)
--- NOTE | 2016-06-21 07:53 | Discharge Instructions ---
Discharge Instructions Date of Service Jun 21, 2016. Admission Reason for Admission: Acute Cholecystitis Discharge Discharge Diagnosis / Problem: s/p lap choile for gangrenous cholecystitis Discharge Goals Goal(s): Therapeutic intervention Activity Recommendations Activity Limitations: per Instructions/Follow-up section Lifting Limitations: no more than 10 pounds Exercise/Sports Limitations: until after follow-up appointment May Resume Sexual Activity: when tolerated Shower/Bathe: no limitations Driving or Machine Use: resume 3 days after discharge (as long as not taking narcotics) . Instructions / Follow-Up Instructions / Follow-Up Myesha; 2 weeks; [phone] Current Hospital Diet Patient's current hospital diet: Regular Diet Discharge Diet Recommended Diet: Regular Diet Procedures Procedures Performed: Laparoscopic Cholecystectomy Pending Studies Studies pending at discharge: no Work Instructions Return To Work: after follow-up Medical Emergencies . Who to Call and When: Medical Emergencies: If at any time you feel your situation is an emergency, please call 911 immediately. . Non-Emergent Contact Non-Emergency issues call your: Primary Care Provider, Surgeon Call Non-Emergent contact if: temperature is above 101.5, your pain is not controlled, your pain is worsening, your pain is unusual for you, your pain is concerning you, wound has increased redness, wound has increased pain, you have any medication questions . "Provider Documentation" section prepared by Jevon Brunner. VTE Core Measure Inpt VTE Proph given/why not?: SCD's [place] Drug Monitoring Program Search Results: patient reviewed within database, no issues identified
[2016-06-21 08:10] VITALS: O2SAT 96
[2016-06-21 08:12] VITALS: BP 147/79; PULSE 62; TEMP 37; O2SAT 96
--- NOTE | 2016-06-21 08:12 | Surgery Progress Note ---
Surgery Progress Note Date of Service Jun 21, 2016. Subjective Post OP Day: 3 + diet (regular), + feeling well, + flatus, No complaints, No nausea, No vomiting Objective Vital Signs: Date Time Temp Pulse Resp B/P Pulse Ox O2 Delivery O2 Flow Rate FiO2 06/21/16 07:44 61 18 96 Room Air 06/21/16 01:53 64 14 97 Room Air 06/21/16 00:00 Room Air 06/20/16 22:48 37.2 60 16 132/76 97 Room Air 06/20/16 22:11 60 138/71 06/20/16 20:08 68 14 96 Room Air 06/20/16 15:50 Room Air 06/20/16 15:40 37.0 60 16 148/76 97 Room Air 06/20/16 14:47 72 18 93 Room Air Physical Exam: Tim drainage (removed) General Appearance: WD/WN, no apparent distress Head: normocephalic, atraumatic Neck: supple, trachea midline Respiratory/Chest: lungs clear Cardiovascular: regular rate, rhythm Abdomen: normal bowel sounds, soft, + distended, + tenderness Incision(s): clean, dry, intact Extremities: non-tender, no pedal edema Laboratory Results: Results Past 24 Hours Test 06/21/16 06:40 Range/Units White Blood Count 11.36 4.8-10.8 K/uL Red Blood Count 3.20 4.7-6.1 M/uL Hemoglobin 10.7 14.0-18.0 g/dL Hematocrit 31.5 42-52 % Mean Corpuscular Volume 98.4 80-100 fL Mean Corpuscular Hemoglobin 33.4 25-34 pg Mean Corpuscular Hemoglobin Concent 34.0 32-36 g/dl RDW Standard Deviation 52.7 36.4-46.3 fL RDW Coefficient of Variation 14.7 11.5-14.5 % Platelet Count 145 130-400 K/uL Mean Platelet Volume 9.8 7.4-10.4 fL Prothrombin Time 16.3 9.0-12.0 SECONDS Prothromb Time International Ratio 1.5 0.9-1.1 Sodium Level 140 136-145 mmol/L Potassium Level 3.5 3.5-5.1 mmol/L Chloride Level 105 98-107 mmol/L Carbon Dioxide Level 27 21-32 mmol/L Anion Gap 8.0 3-11 mmol/L Blood Urea Nitrogen 17 7-18 mg/dl Creatinine 0.87 0.60-1.40 mg/dl Est Creatinine Clear Calc Drug Dose 53.8 ml/min Estimated GFR () 88.7 Estimated GFR (Non- 76.5 BUN/Creatinine Ratio 19.2 10-20 Random Glucose 103 70-99 mg/dl Calcium Level 7.9 8.5-10.1 mg/dl Assessment & Plan s/p lap gage -drain out -doing well with diet and activity -dosing anti-coagulation per medicine -discharge instructions and Rx on chart -discharge OK with surgery -will sign off
[2016-06-21 12:08] VITALS: BP 147/79; PULSE 62; TEMP 37; O2SAT 96
--- NOTE | 2016-06-21 14:06 | Progress Note ---
Medicine Progress Note Date & Time of Visit: Jun 21, 2016 at 13:47. Subjective Pt was seen and examined Sitting in chair with no distress he said that he feels good he said that his breathing feels much better denies any chest pain, palpitation, abdominal pain and sob he tolerated his diet well Objective Last 8 Hrs Date Time Temp Pulse Resp B/P Pulse Ox O2 Delivery O2 Flow Rate FiO2 06/21/16 12:08 37.0 62 16 96 Room Air 06/21/16 08:12 37.0 62 16 147/79 96 Room Air 06/21/16 08:10 96 Room Air 06/21/16 07:45 Room Air 06/21/16 07:44 61 18 96 Room Air Physical Exam: General- No acute distress Head- atraumatic Eyes- PERRL, EOMI ENT- oropharynx clear Neck- supple, no JVD Lungs- No crackle Heart- regular rhythm; no murmur Abdomen- normal bowel sounds, non distended, drain out Extremities- no calf tenderness Neuro- alert, oriented, PERRL, EOMI Laboratory Results: Last 24 Hours Test 06/21/16 06:40 White Blood Count 11.36 K/uL Red Blood Count 3.20 M/uL Hemoglobin 10.7 g/dL Hematocrit 31.5 % Mean Corpuscular Volume 98.4 fL Mean Corpuscular Hemoglobin 33.4 pg Mean Corpuscular Hemoglobin Concent 34.0 g/dl RDW Standard Deviation 52.7 fL RDW Coefficient of Variation 14.7 % Platelet Count 145 K/uL Mean Platelet Volume 9.8 fL Prothrombin Time 16.3 SECONDS Prothromb Time International Ratio 1.5 Sodium Level 140 mmol/L Potassium Level 3.5 mmol/L Chloride Level 105 mmol/L Carbon Dioxide Level 27 mmol/L Anion Gap 8.0 mmol/L Blood Urea Nitrogen 17 mg/dl Creatinine 0.87 mg/dl Est Creatinine Clear Calc Drug Dose 53.8 ml/min Estimated GFR () 88.7 Estimated GFR (Non- 76.5 BUN/Creatinine Ratio 19.2 Random Glucose 103 mg/dl Calcium Level 7.9 mg/dl Assessment & Plan ACUTE CHOLECYSTITIS -S/P day# 0 Lap Chol for grangrenous cholecystitis by Dr. Brunner with no acute complications -CT of the Abdomen and HIDA scan suggestive of Acute Cholecystitis -received zosyn for 5 days -Tolerated regular diet -Discharge on Augmentin by Surgery - Stable SHORTNESS OF BREATH/WHEEZING - Saturate well on room air - Breathing is good today as per pt - Possible related to volume overload - CXR shows small right pleural effusion, no consolidation - stable ATRIAL FIBRILLATION /H/O SICK SINUS SYNDROME -controlled paced rhythm -PPM checked -Continue Coumadin (INR 1.5 today) - [place] [facility] VALVULAR DISEASE -h/o mitral regurgitation and aortic insufficiency - lasix resumed -Echo ::Left ventricular systolic function is normal. * Ejection Fraction = 55-60%. * There is mild concentric left ventricular hypertrophy. * Apical wall motion abnormality may reflect pacemaker activation. * The left atrium is severely dilated. * Mild to moderate aortic regurgitation. * There is mild mitral regurgitation. * There is moderate to severe tricuspid regurgitation. * The estimated systolic PAP is 50mmHg. 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 * IVC was not visualized. URINARY RETENTION Resolved HTN -stable -continue BB, Lisinopril DVT PROPHYLAXIS: SCDs RE: surgery (during the hospital course) Continue coumadin CODE STATUS: FULL CODE DISPOSITION Follow up with Dr. Chambers on June 25 at 1:30 pm Consultants: Surgery Procedures: Lap Chol for gangrenous cholecystitis Current Inpatient Medications: Current Inpatient Medications Medications (Trade) Dose Ordered Sig/Marek Route Start Time Stop Time Status Last Admin Dose Admin Acetaminophen (Tylenol Tab) 650 mg Q4H PRN PO 06/16/16 11:45 07/16/16 11:44 06/19/16 17:26 650 MG Ondansetron HCl (Zofran Inj) 4 mg Q6H PRN IV 06/16/16 11:45 07/16/16 11:44 06/20/16 02:18 4 MG Carvedilol (Coreg Tab) 12.5 mg BID PO 06/16/16 21:00 07/16/16 20:59 06/21/16 07:51 12.5 MG Morphine Sulfate (MoRPHine SULFATE INJ) 2 mg Q1H PRN IV 06/18/16 14:00 07/02/16 13:59 06/18/16 15:39 2 MG Oxycodone/ Acetaminophen (Percocet 5-325mg Tab) `1-2 tabs for pain 1 tab ... Q4H PRN PO 06/18/16 14:00 07/02/16 13:59 Morphine Sulfate (MoRPHine SULFATE INJ) 4 mg Q1H PRN IV 06/18/16 14:30 07/02/16 14:29 Calcium Carbonate (Tums Chew Tab) 500 mg Q6H PRN PO 06/19/16 02:15 07/19/16 02:14 06/20/16 08:38 500 MG Albuterol/ Ipratropium (Duoneb) 3 ml Q4H PRN INH 06/19/16 08:15 07/19/16 08:14 06/19/16 20:51 3 ML Warfarin Sodium (Coumadin Tab) 2.5 mg TuThSa@1600 PO 06/20/16 16:00 07/20/16 15:59 06/20/16 15:53 2.5 MG Furosemide (Lasix Tab) 20 mg QAM PO 06/19/16 11:00 07/19/16 10:59 06/21/16 07:51 20 MG Warfarin Sodium (Coumadin Tab) 1.25 mg SuMoWeFr@1600 PO 06/19/16 16:00 07/19/16 15:59 06/19/16 16:08 1.25 MG
--- NOTE | 2016-06-21 14:12 | Discharge Instructions ---
Discharge Instructions Date of Service Jun 21, 2016. Admission Reason for Admission: Acute Cholecystitis Discharge Discharge Diagnosis / Problem: Acute gangrenous cholecystitis, Dyspnea, Urinary retention, AFIB Discharge Goals Goal(s): Decrease discomfort, Improve function, Improve disease control Activity Recommendations Activity Limitations: resume your previous activity (as tolerated) . Instructions / Follow-Up Instructions / Follow-Up Follow surgery recommendation Follow up with surgery in 2 weeks follow appointment with your physician Dr. Chambers on June 25 at 1:30PM Follow up with the [facility] for your INR Current Hospital Diet Patient's current hospital diet: Regular Diet Discharge Diet Recommended Diet: AHA Diet (Heart Healthy) Procedures Procedures Performed: Laparoscopic Cholecystectomy Pending Studies Studies pending at discharge: no Work Instructions Return To Work: after follow-up Medical Emergencies . Who to Call and When: Medical Emergencies: If at any time you feel your situation is an emergency, please call 911 immediately. . Non-Emergent Contact Non-Emergency issues call your: Primary Care Provider Call Non-Emergent contact if: you have a fever, your pain is not controlled, wound has increased drainage . . "Provider Documentation" section prepared by Felipe Roche. VTE Core Measure Inpt VTE Proph given/why not?: Warfarin (Coumadin), SCD's [place] Drug Monitoring Program Search Results: no issues identified
--- NOTE | 2016-06-21 14:14 | Discharge Summary ---
Discharge Summary Date of Service Jun 21, 2016. Discharge Summary Admission Date: Jun 16, 2016 at 11:35 Discharge Date: Jun 21, 2016 Discharge Disposition: Home Principal Diagnosis: Acute Gangrenous Cholecystitis Secondary Diagnoses/Problems: HTN ATRIAL FIBRILLATION H/O SICK SINUS SYNDROME S/P PACEMAKER Dyspnea Urinary retention Procedures: Lap Chol for gangrenous cholecystitis Consultations: Surgery Medication Reconciliation New Medications: Amoxicillin & Pot Clavulanate (Augmentin 875-125 mg) 1 Tab Tab 875 MG PO BID, #14 TAB Oxycodone/Acetaminophen 5MG/325MG (Percocet 5MG/325MG) Tab 1 TABLET PO Q6H PRN for Pain, #30 TAB Continued Medications: Acetaminophen (Tylenol) 500 Mg Tab 1000 MG PO BID PRN for Pain, TAB Aspirin (Aspirin 81) 81 Mg Tab 81 MG PO DAILY Carvedilol (Coreg) 12.5 Mg Tab 12.5 MG PO BID, TAB Cholecalciferol (D 1000) 1,000 Unit Cap 1000 UNIT PO DAILY Furosemide (Lasix) 20 Mg Tab 20 MG PO DAILY, TAB Lisinopril (Zestril) 40 Mg Tab 40 MG PO DAILY, 0 Refills Multivitamin (Multivitamin) Tab 1 TAB PO DAILY, 0 Refills Potassium Chloride (Micro-K Ext Rel) 10 Meq Capcr 10 MEQ PO DAILY, 0 Refills Warfarin Sod (Jantoven) 2.5 Mg Tab 2.5 MG PO UD, TAB 2.5mg TuThSa, 1.25mg all other days Admission Information HPI (per Admitting provider): Patient seen and examined. 89 year old male with PMHx of Afib on Coumadin, Sick Sinus Syndrome s/p pacemaker, valvular disease, and HTN presents to the ED complaining of abdominal pain x 1 day. Patient reports last evening he developed diffuse sharp abdominal pain he rated as a 9/10. He reports it was constant and he had one episode of vomiting and one episode of loose stools. He denies fevers, chills, URI symptoms, chest pain, SOB, palpitations, dysuria, calf pain and edema. He denies new and unusual foods or fatty/fried foods. He states this has never happened before. He denies history of abdominal surgeries. In the ED VS were stable, WBC count was 13.6, INR was 2. CT a/p showed acute cholecystitis. He received IVFs, morphine and Zosyn. He is resting comfortably. Surgery was consulted and suggested medical admission for Coumadin reversal. He will be admitted for further workup and treatment. Physical Exam (per Admitting): General Appearance: + pertinent finding (Pleasant WD/WN 89 year old male lying in bed in NAD with family at bedside ) Head: normocephalic, atraumatic Eyes: PERRL, EOMI, sclerae normal ENT: normal ENT inspection, pharynx normal Neck: supple, no JVD Respiratory/Chest: chest non-tender, lungs clear, normal breath sounds, no respiratory distress, no accessory muscle use Cardiovascular: regular rate, rhythm, no edema, no gallop, no JVD, no murmur , normal peripheral pulses Abdomen/GI: normal bowel sounds, soft, + tenderness (diffuse worse RUQ, no guarding or rigidity ), + pertinent finding (+calixto's sign ) Back: normal inspection, no muscle spasm Extremities/Musculoskelatal: no calf tenderness, normal capillary refill, no pedal edema Neurologic/Psych: no motor/sensory deficits, alert, oriented x 3 Skin: normal color, warm/dry, no rash Lymphatic: no adenopathy Hospital Course ACUTE CHOLECYSTITIS -S/P day# 0 Lap Chol for grangrenous cholecystitis by Dr. Brunner with no acute complications -CT of the Abdomen and HIDA scan suggestive of Acute Cholecystitis -received zosyn for 5 days -Tolerated regular diet -Discharge on Augmentin by Surgery - Stable SHORTNESS OF BREATH/WHEEZING - Saturate well on room air - Breathing is good today as per pt - Possible related to volume overload - CXR shows small right pleural effusion, no consolidation - stable ATRIAL FIBRILLATION /H/O SICK SINUS SYNDROME -controlled paced rhythm -PPM checked -Continue Coumadin (INR 1.5 today) - Follow up with the [facility] VALVULAR DISEASE -h/o mitral regurgitation and aortic insufficiency - lasix resumed -Echo ::Left ventricular systolic function is normal. * Ejection Fraction = 55-60%. * There is mild concentric left ventricular hypertrophy. * Apical wall motion abnormality may reflect pacemaker activation. * The left atrium is severely dilated. * Mild to moderate aortic regurgitation. * There is mild mitral regurgitation. * There is moderate to severe tricuspid regurgitation. * The estimated systolic PAP is 50mmHg. 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 * IVC was not visualized. URINARY RETENTION Resolved HTN -stable -continue BB, Lisinopril DVT PROPHYLAXIS: SCDs RE: surgery (during the hospital course) Continue coumadin CODE STATUS: FULL CODE DISPOSITION Follow up with Dr. Chambers on June 25 at 1:30 pm Total time spent on discharge = 35 minutes This includes examination of the patient, discharge planning, medication reconciliation, and communication with other providers. Discharge Instructions Please take this sheet to every appointment for the next month Discharge Instructions Date of Service Jun 21, 2016. Admission Reason for Admission: Acute Cholecystitis Discharge Discharge Diagnosis / Problem: s/p lap choile for gangrenous cholecystitis Discharge Goals Goal(s): Therapeutic intervention Activity Recommendations Activity Limitations: per Instructions/Follow-up section Lifting Limitations: no more than 10 pounds Exercise/Sports Limitations: until after follow-up appointment May Resume Sexual Activity: when tolerated Shower/Bathe: no limitations Driving or Machine Use: resume 3 days after discharge (as long as not taking narcotics) . Instructions / Follow-Up Instructions / Follow-Up Myesha; 2 weeks; [id number] Current Hospital Diet Patient's current hospital diet: Regular Diet Discharge Diet Recommended Diet: Regular Diet Procedures Procedures Performed: Laparoscopic Cholecystectomy Pending Studies Studies pending at discharge: no Work Instructions Return To Work: after follow-up Medical Emergencies . Who to Call and When: Medical Emergencies: If at any time you feel your situation is an emergency, please call 911 immediately. . Non-Emergent Contact Non-Emergency issues call your: Primary Care Provider, Surgeon Call Non-Emergent contact if: temperature is above 101.5, your pain is not controlled, your pain is worsening, your pain is unusual for you, your pain is concerning you, wound has increased redness, wound has increased pain, you have any medication questions . "Provider Documentation" section prepared by Jevon Brunner. VTE Core Measure Inpt VTE Proph given/why not?: SCD's [place] Drug Monitoring Program Search Results: patient reviewed within database, no issues identified <Electronically signed by Jevon Brunner M.D.> Signed: 06/21/16 0753 Signed: The status of this report is Signed * If report status is Draft, the document has not been finalized by the responsible provider. Addendum: 06/21/16 1343 Addendum: Felipe Roche M.D. on 06/21/16 @ 13:43 Discharge Inst - Addendum Addendum Provider: Addendum Notes were documented by provider Felipe Roche. Follow up with your primary care physician Dr. Chambers on FridayJune 25 at 1 :30 pm Follow up with the Coumadin clinic to monitor your INR Additional Copies To Niels Chambers D.O.
[2016-10-04] MEDS ORDERED: ACET-1311 PO (10:56)
== END 2016-06-21 14:20 | disposition home or self-care (01) | DRG 419 ==
LOC: ENRESERVDT → ENRESERVTM → C.EDB 07:47 → C.MSW 11:35
PROVIDERS: ADMIT Internal Medicine; ATTEND Internal Medicine
PROC: 0FT44ZZ Resection of Gallbladder, Percutaneous Endoscopic Approach (ICD-10-PCS; principal; 2016-06-18 12:30)
DX: K81.0 Acute cholecystitis (principal); Z79.01 Long term (current) use of anticoagulants; Z95.0 Presence of cardiac pacemaker; I10 Essential (primary) hypertension; I48.2 Chronic atrial fibrillation; Z80.9 Family history of malignant neoplasm, unspecified; Z79.82 Long term (current) use of aspirin; Z79.899 Other long term (current) drug therapy; I08.3 Combined rheumatic disorders of mitral, aortic and tricuspid valves; R30.0 Dysuria; R33.9 Retention of urine, unspecified; K76.0 Fatty (change of) liver, not elsewhere classified; Z96.659 Presence of unspecified artificial knee joint